=== PATIENT | female | born 1995 | race Caucasian/White ===

== ENCOUNTER 2019-10-23 14:28 | Outpatient (CLI) | payer OTHER, SELFPAY ==
--- NOTE | ~2019-10-23 | XR_ITS ---
XR hip LT min 2V DATE: 10/23/2019 14:52 INDICATION: Left lower groin pain for 2 weeks. Limping. No injury. TECHNIQUE: AP, lateral and crosstable lateral views of left hip COMPARISON: None FINDINGS: No fracture or dislocation, avascular necrosis or bone destruction. Left hip joint space is well preserved. There is an approximately 1 cm double density overlying the left hip joint; in order to differentiate intra-articular loose body versus more likely bone island or other cause for osteos clerotic lesion, CT evaluation left hip is recommended IMPRESSION: CT left hip examination is recommended to evaluate 1 cm density overlying left hip joint. Reviewed, dictated and finalized at location A. IMPRESSION: CT left hip examination is recommended to evaluate 1 cm density ove rlying left hip joint.
== END 2019-10-23 14:29 | disposition home or self-care (01) ==
LOC: ANHIMG 14:36
PROVIDERS: PCP Physician Assistant; Visit Provider Physician Assistant
DX: M47.24 Other spondylosis with radiculopathy, thoracic region (principal); R10.32 Left lower quadrant pain; R93.6 Abnormal findings on diagnostic imaging of limbs
CPT/HCPCS: 73502

== ENCOUNTER 2019-10-30 11:19 | Outpatient (CLI) | payer OTHER, SELFPAY ==
--- NOTE | ~2019-10-30 | CT_ITS ---
EXAMINATION: CT hip LT w con DATE: 10/30/2019 12:04 INDICATION: Abnormal finding at the left hip on prior radiographs. TECHNIQUE: High resolution computed tomography (CT) of the left hip was performed . with 100 mL Omnip aque-350 intravenous contrast. Additional sagittal and coronal reconstructions were performed. Automa kimberly exposure control and iterative reconstruction technique were employed. The dose-length product wa s 818.55 mGy-cm. COMPARISON: Radiographs dated 10/23/2019 FINDINGS: Bone alignment is normal. No fracture or suspected avascular necrosis. Left hip joint space is normal . A few scattered small sclerotic bone islands and larger than on that the posterior left acetabulum corresponding to the sclerotic lesion of concern on prior radiographs. 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 Tampon within the vaginal vault. The left ovary as well as the visualized portion of the bowels, bladder and uterus are unremarkable. No patho logically enlarged left pelvic or inguinal lymphadenopathy. IMPRESSION: 1. Unremarkable CT of the left hip with dense sclerotic left acetabular bone island corresponding to the opacity on the prior radiographs. Reviewed, dictated and finalized at location A. IMPRESSION: 1. Unremarkable CT of the left hip with dense sclerotic left acetabular bone is land corresponding to the opacity on the prior radiographs.
== END 2019-10-30 11:20 | disposition home or self-care (01) ==
LOC: ANHIMG 11:20
PROVIDERS: PCP Physician Assistant; Visit Provider Physician Assistant
DX: R93.6 Abnormal findings on diagnostic imaging of limbs (principal)
CPT/HCPCS: 73701; Q9967

== ENCOUNTER → 2020-10-31 10:18 | Outpatient (CLI) | payer OTHER, SELFPAY ==
--- NOTE | ~2020-10-31 | US_ITS ---
US right upper quadrant DATE: 10/31/2020 10:32 INDICATION: Pain TECHNIQUE: Real-time imaging, Doppler analysis of liver, pancreas, gallbladder areas COMPARISON: None FINDINGS: Normal caliber of the abdominal aorta. Inferior vena cava is unremarkable. No hepatic or pancreatic space-occupying mass lesion is evident. Normal hepatopedal portal venous tay w direction. No evidence of gallstones or gallbladder wall thickening or abnormal pericholecystic fluid collection . Negative sonographic Sousa's sign. The common bile duct measures 4.1 mm, normal. IMPRESSION: Normal examination Reviewed, dictated and finalized at Location A. Reviewed, dictated and finalized at location A. IMPRESSION: Normal examination
== END ==
PROVIDERS: Visit Provider Physician Assistant
DX: M54.6 Pain in thoracic spine (principal); R10.9 Unspecified abdominal pain
CPT/HCPCS: 76705

== ENCOUNTER 2021-10-26 15:44 | Outpatient (CLI) | payer BC, SELFPAY ==
--- NOTE | ~2021-10-26 | MR_ITS ---
EXAMINATION: MR brain/brain stem wo/w con DATE: 10/26/2021 16:32 INDICATION: Postural dizziness. Postural Orthostatic tachycardia syndrome. TECHNIQUE: Magnetic resonance imaging (MRI) of the brain and brainstem was performed without and with 14 mL MultiHance intravenous contrast. COMPARISON: None. FINDINGS: There is no intracranial hemorrhage, acute infarction, or abnormal intracranial mass lesion . The ventricles are normal in size. The orbits are normal. The paranasal sinuses are clear. The mast oid air cells are normal. IMPRESSION: 1. Normal brain. Reviewed, dictated and finalized at location A. IMPRESSION: 1. Normal brain.
[2021-10-26 16:14] LABS: Estimated Glomerular Filt Rate > 60
== END 2021-10-26 15:45 | disposition home or self-care (01) ==
PROVIDERS: PCP Physician Assistant; Visit Provider Physician Assistant
DX: R42 Dizziness and giddiness (principal)
CPT/HCPCS: 70553; A9577

== ENCOUNTER → 2022-11-01 12:00 | Outpatient (CLI) | payer BC, SELFPAY ==
--- NOTE | ~2022-11-01 | XR_ITS ---
AP and lateral views of the right hip Clinical history: Pain Findings: No acute fracture or dislocation is seen. Osseous alignment is anatomic. The right hip join t and right SI joint are preserved. Soft tissues are unremarkable. Impression: No significant abnormality is seen. Reviewed, dictated and finalized at [facility]. Impression: No significant abnormality is seen.
--- NOTE | ~2022-11-01 | XR_ITS ---
Lumbosacral Spine: AP and lateral views Clinical History: Pain Findings: The normal lordotic curve is maintained. The vertebral bodies and posterior elements are i ntact. The intervertebral disc spaces are preserved. There is moderate facet arthropathy at L4-L5 an d L5-S1. The sacroiliac joints are normally outlined. Impression: Facet arthropathy at the lower lumbar spine, as detailed above. Reviewed, dictated and finalized at location M. Impression: Facet arthropathy at the lower lumbar spine, as detailed above.
== END ==
PROVIDERS: PCP Physician Assistant; Visit Provider Physician Assistant
DX: M54.16 Radiculopathy, lumbar region (principal); M25.551 Pain in right hip; M47.816 Spondylosis without myelopathy or radiculopathy, lumbar region
CPT/HCPCS: 72100; 73502

== ENCOUNTER 2023-05-08 13:51 | Outpatient (CLI) | payer BC, SELFPAY ==
[2023-05-13 17:58] LABS: NIL 0.01 IU/mL; Quantiferon TB Plus, 1T NEGATIVE (NEGATIVE)
== END 2023-05-08 13:52 | disposition home or self-care (01) ==
PROVIDERS: PCP Physician Assistant
DX: M46.90 Unspecified inflammatory spondylopathy, site unspecified (principal); Z79.899 Other long term (current) drug therapy
CPT/HCPCS: 36415; 86480

== ENCOUNTER 2023-06-12 10:43 | Outpatient (CLI) | payer BC, SELFPAY ==
[2023-06-12 12:21] LABS: Hepatitis B Surface Anti Res Negative
[2023-06-12 17:33] LABS: Hepatitis B Surface Antigen Negative (Negative)
== END 2023-06-12 10:44 | disposition home or self-care (01) ==
LOC: ANHLAB 10:48
PROVIDERS: PCP Physician Assistant
DX: M46.90 Unspecified inflammatory spondylopathy, site unspecified (principal); Z79.899 Other long term (current) drug therapy
CPT/HCPCS: 36415; 86706; 87340

== ENCOUNTER 2024-02-10 15:24 | Outpatient (CLI) | payer BC, SELFPAY ==
--- NOTE | ~2024-02-10 | US_ITS ---
EXAMINATION: US right upper quadrant DATE: 02/10/2024 15:42 INDICATION: upper abd pain TECHNIQUE: Multiple grayscale and Doppler ultrasound images of the right upper quadrant were obtained . COMPARISON: 10/31/2020. FINDINGS: The visualized portions of the pancreas are normal. The liver is normal with normal echogen icity and echotexture. No surface nodularity. Normal hepatopetal flow in the main portal vein. The ga llbladder is normal with no abnormal wall thickening, pericholecystic fluid or stones. The common jamaal e duct measures 3 mm. There was no sonographic Sousa sign. IMPRESSION: Normal right upper quadrant ultrasound findings. Reviewed, dictated and finalized at location K.
== END 2024-02-10 15:25 ==
PROVIDERS: PCP Physician Assistant; Visit Provider Physician Assistant
DX: R10.10 Upper abdominal pain, unspecified (principal)
CPT/HCPCS: 76705

== ENCOUNTER 2024-02-14 07:37 | Outpatient (CLI) | payer BC, SELFPAY ==
--- NOTE | ~2024-02-14 | NM_ITS ---
EXAMINATION: NM hepatobiliary w pharm DATE: 02/14/2024 11:48 INDICATION: Right upper quadrant abdominal pain. COMPARISON: Abdomen ultrasound 02/20/2024 TECHNIQUE: 5 mCi Tc-99m mebrofenin (Choletec) was administered intravenously. Scintigraphic images o f the abdomen were obtained for one hour. Then, 1.4 mcg sincalide (Kinevac) IV was administered, and imaging was continued for 30 minutes. FINDINGS: There is normal clearance of radiotracer from the blood pool. There is homogeneous tracer u ptake by the liver. Activity progresses to the bowel and gallbladder. Gallbladder ejection fraction (GBEF) was 69%. Note that most patients with gallbladder dysfunction have GBEF < 35%, which overlaps with the broad normal range of 10-90%. IMPRESSION: 1. Normal hepatobiliary scintigraphy. Reviewed, dictated and finalized at location A.
== END 2024-02-14 07:38 | disposition home or self-care (01) ==
PROVIDERS: PCP Physician Assistant; Visit Provider Physician Assistant
DX: R10.11 Right upper quadrant pain (principal)
CPT/HCPCS: 78227; A9537; J2805

== ENCOUNTER 2024-02-20 15:29 | Emergency (ER) | payer BC, SELFPAY ==
--- NOTE | ~2024-02-20 | CT_ITS ---
EXAMINATION: CT abdomen pelvis w con DATE: 02/20/2024 18:33 INDICATION: Abdominal pain. TECHNIQUE: Computed tomography (CT) of the abdomen and pelvis was performed with 100 mL Omnipaque 350 intravenous contrast. Automated exposure control and iterative reconstruction technique were employe d. The dose-length product was 269.76 mGy-cm. COMPARISON: None. FINDINGS: The visualized portions of the lung bases are clear without pneumonia or pleural effusion. The heart is normal. No pericardial effusion. The liver and gallbladder are normal. There is moderate splenomegaly measuring 17.1 cm. The pancreas, adrenal glands, and kidneys are normal. There are no d ilated loops of bowel. The appendix is not visualized. There are no pathologically enlarged lymph nod es. There is no ascites. There are a few scattered benign bone islands. There is mild lumbar stenosis . IMPRESSION: 1. Moderate splenomegaly. Reviewed, dictated and finalized at location A. IMPRESSION: 1. Moderate splenomegaly.
[2024-02-20 15:38] VITALS: BP 113/68; PULSE 89; RESP 19; O2SAT 98
[2024-02-20 15:42] VITALS: BP 122/89; PULSE 77; RESP 16; TEMP 36.6; O2SAT 99
[2024-02-20 16:09] VITALS: PULSE 72; RESP 12; O2SAT 100
[2024-02-20 16:15] LABS: Basophils Percent Auto 0.2 % (0.2-1.2); Eosinophils Absolute Auto 0.3 K/mm3 (0-0.3); Hematocrit 38.6 % (37.0-47.0); Hemoglobin 13.1 g/dL (12.0-15.0); Lymphocytes Absolute Auto 2.52 K/mm3 (0.9-3.2); Lymphocytes Percent Auto 52.5 % (18.3-44.2); Mean Corpuscular HGB Conc 33.9 g/dl (32-36); Mean Corpuscular Hemoglobin 28.4 pg (26-34); Mean Corpuscular Volume 83.5 fl (80-100); Mean Platelet Volume 10.3 fl (7.4-10.4); Monocytes Absolute Auto 0.3 K/mm3 (0.1-0.6); Monocytes Percent Auto 5.6 % (2.6-8.5); Neutrophils Absolute Auto 1.7 K/mm3 (1.3-6.7); Neutrophils Percent Auto 35.7 % (45.5-73.1); Platelet Count Result 191 k/mm3 (150-375); Red Blood Count 4.62 M/mm3 (4.2-5.4); Red Cell Distribution Width 13.8 % (11.5-14.5); White Blood Count 4.8 K/mm3 (4.5-10.0)
[2024-02-20 16:18] LABS: Alanine Aminotransferase 29 U/L (6-35); Albumin Level 4.6 g/dL (3.5-5.1); Alkaline Phosphatase 62 U/L (38-126); Anion Gap 10 mmol/L (4-12); Aspartate Amino Transferase 39 U/L (14-36); Bilirubin,Total 0.9 mg/dL (0.2-1.3); Blood Urea Nitrogen 9 mg/dL (7-17); Calcium 9.4 mg/dL (8.4-10.2); Carbon Dioxide 27 mmol/L (22-30); Chloride 100 mmol/L (98-107); Estimated CRCL calculation 92 ml/min; Estimated Glomerular Filt Rate > 60; Glucose 90 mg/dL (65-110); Lipase 110 U/L (23-300); Potassium 4.3 mmol/L (3.4-5.0); Sodium 137 mmol/L (137-145)
[2024-02-20] MEDS: SODIUM CHLORIDE 0.9% IV 1,000 ML 999 ML IV CONT (16:30)
[2024-02-20] MEDS: PANTOPRAZOLE SODIUM IV 40 MG VIAL IV PUSH (16:32)
[2024-02-20] MEDS: HALOPERIDOL LACTATE 5 MG/ML VIAL IM (16:34)
[2024-02-20] MEDS: BELLADONNA ALK/PHENOB ELIX 10 ML, MAG HYDROX/ALUMINUM HYD/SIMETH 30 ML, LIDOCAINE HCL 2... PO (16:36)
[2024-02-20 16:39] LABS: INR 1.1; Partial Thromboplastin Time 29.8 Seconds (22.3-36.8); Prothrombin Time 14.2 Seconds (11.1-14.7)
--- NOTE | 2024-02-20 16:56 | ED.ABDPAIN ---
HPI - Abdominal Pain General Chief Complaint: Abdominal Pain Stated Complaint: abd pain Time Seen by Provider: 02/20/24 15:33 History of Present Illness HPI narrative: 28-year-old female present to the emergency department for evaluation for upper abdominal pain. Patient has had upper abdominal pain for the last few days. Patient has had persistent nausea vomiting diarrhea. Patient states pain is worsened immediately after eating. Patient did have a outpatient HIDA scan an outpatient ultrasound showing normal gallbladder function. Patient presented emergency department today complaining of persistent symptoms. Related Data Home Medications Medication Instructions Recorded Confirmed Bcp 06/04/19 Allergies Allergy/AdvReac Type Severity Reaction Status Date / Time No Known Allergies Allergy Verified 02/20/24 15:52 Review of Systems Review of Systems: All systems reviewed & are unremarkable except as noted in HPI and below PMFSH Family History Family History (Updated 10/08/14 @ 12:07 by DOCTOR UNKNOWN) Other Family history of malignant neoplasm of breast in first degree relative Family history of malignant neoplasm of uterus Social History Social History Smoking status: Never smoker Exam Narrative: APPEARANCE: Well appearing, no pain, no distress, well-nourished. HEAD: normocephalic, atraumatic. EYES: PERRLA/EOMI, conjunctivae clear. NOSE: Normal no drainage EARS:TMS clear with good light reflex. THROAT: Pharynx clear, no exudate. NECK: Supple. No adenopathy, no masses. RESPIRATORY: Airway patent, respirations nonlabored. Clear to auscultation bilaterally, no rales, rhonchi, wheezing. CARDIOVASCULAR: Regular rate and rhythm without murmurs rubs or gallops. ABDOMINAL: no significant upper abdominal tenderness to palpation, no rebound, no guarding MUSCULOSKELETAL: Moves all extremities. Strength/ROM intact, No edema, No calf tenderness. NEURO: Alert. Cranial nerves II through XII intact. Grossly intact SKIN: Warm, dry. Normal Color Course Course Emergency Course: Patient felt improved with treatment and was discharged to home Vital Signs Vital signs: Vital Signs Pulse Rate 89 02/20/24 15:38 Respiratory Rate 19 02/20/24 15:38 Blood Pressure 113/68 02/20/24 15:38 Pulse Oximetry 98 02/20/24 15:38 Temperature 97.9 F 02/20/24 15:42 Pulse Rate 85 02/20/24 19:05 Respiratory Rate 16 02/20/24 19:05 Blood Pressure 124/86 02/20/24 19:05 Pulse Oximetry 95 02/20/24 19:05 Oxygen Delivery Room Air 02/20/24 15:42 MDM - Abdominal Pain MDM Narrative Medical decision making narrative: 28-year-old female presenting to the emergency department for evaluation for upper abdominal pain. Patient is afebrile with no leukocytosis and a stable hemoglobin of 13.1. Patient has a normal INR of 1.1. Patient had no elevation of AST ALT alk-phos. Lipase was not elevated. Urine showed no evidence of infection. Patient was treated with GI cocktail, IV Protonix, IV fluids and IM Haldol. I had a lengthy discussion with the patient on refraining from CT imaging but patient strongly prefers so a CT scan was ordered. CT scan showed some mild splenomegaly but no underlying etiology for the patient's symptoms. On re-evaluation patient states she does feel significantly improved. Differential Diagnosis Differential diagnosis: Likely abdominal pain, acute appendicitis, constipation, diverticulitis, endometriosis, pancreatitis and small bowel obstruction Lab Data Attestation: I reviewed the patient's lab results. 02/20/24 16:00 02/20/24 16:00 Labs: Lab Results 02/20/24 02/20/24 Range/Units 16:00 16:49 WBC 4.8 (4.5-10.0) K/mm3 RBC 4.62 (4.2-5.4) M/mm3 Hgb 13.1 (12.0-15.0) g/dL Hct 38.6 (37.0-47.0) % MCV 83.5 (80-100) fl MCH 28.4 (26-34) pg MCHC 33.9 (32-36) g/dl RDW 13.8 (11.5-14.5) % Plt Count
[2024-02-20 16:57] LABS: Add Urine Microscopic? NO; Appearance Urine Clear (Clear); Bilirubin Urine Negative (Negative); Blood Urine Negative (Negative); Color Urine Yellow (Yellow); Glucose Urine UA Negative (Negative); Ketones Urine Negative (Negative); Leukocyte Esterase Ur Negative LEU/UL (Negative); Nitrate Urine Negative (Negative); Protein Urine Negative (Negative); Specific Grav Ur 1.006 (1.001-1.035); Urobilinogen Urine 0.2 mg/dL (<2.0)
[2024-02-20 17:37] LABS: Pregnancy On Board Control Positive; Urine Pregnancy Test Negative
[2024-02-20 18:17] VITALS: BP 132/61; PULSE 81; RESP 19; O2SAT 100
[2024-02-20 19:05] VITALS: BP 124/86; PULSE 85; RESP 16; O2SAT 95
== END 2024-02-20 19:23 | disposition home or self-care (01) ==
PROVIDERS: Emergency Provider Emergency Medicine; PCP Physician Assistant
DX: R10.10 Upper abdominal pain, unspecified (principal); R16.1 Splenomegaly, not elsewhere classified
CPT/HCPCS: 36415; 74177; 80053; 81003; 81025; 83690; 85025; 85610; 85730; 96361; 96372; 96374; 99284; A9270; J1630; J2470; J7030; Q9967

== ENCOUNTER 2025-02-19 11:15 | Outpatient (CLI) | payer BC, SELFPAY ==
--- NOTE | ~2025-02-19 | US_ITS ---
EXAMINATION: US thyroid DATE: 02/19/2025 11:35 INDICATION: Cervicalgia. Neck discomfort. TECHNIQUE: Multiple ultrasound images of the thyroid were obtained. COMPARISON: None. FINDINGS: The right thyroid lobe measures 4.8 x 1.3 x 1.7 cm. The left thyroid lobe measures 4.8 x 1.5 x 1.6 cm. There are few small similar-appearing hypoechoic nodules in both the left and right thyroid lobes with central hyperechoic foci, the largest with posterior comet tail artifact suggesting colloid cysts with inspissated colloid. The largest in both the left and right thyroid lobes measure up to 4 mm in maximal dimension. There is normal echotexture, echogenicity and vascular flow throughout the surrounding thyroid gland. IMPRESSION: 1. 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 Regardless of appearance the size remains below criteria for either biopsy or follow-up. Reviewed, dictated and finalized at location A. IMPRESSION: 1. A few hypoechoic nodules measuring up to 4 mm in the both the left and right thyroid lobes with appearance suggestive of benign colloid cyst with inspissat ed colloid. Regardless of appearance the size remains below criteria for either biopsy or follow-up.
== END 2025-02-19 11:16 | disposition home or self-care (01) ==
PROVIDERS: PCP Physician Assistant; Visit Provider Physician Assistant
DX: E04.2 Nontoxic multinodular goiter (principal); M54.2 Cervicalgia
CPT/HCPCS: 76536

== ENCOUNTER 2025-03-29 01:23 | Day surgery (SDC) | payer BC, SELFPAY ==
--- NOTE | 2025-03-17 17:58 | PC.NURSE ---
[facility] has started construction of its new state of the art ER which will open Spring 2026. With this, we anticipate parking may be a challenge for some our surgical patients and families. Parking spaces are limited but are available for all Surgical, obstetrics, and ER patients sharing this lot. If you arrive and find you are having a hard time finding a parking space, please note that we understand the challenges, please drive around the hospital and park near Hospital Entrance 1. When you enter this entrance, you can ask a volunteer to direct or take you back to the surgical waiting area to check in. We appreciate everyone?s understanding of these expected challenges while we build for your future. Report to the Outpatient Waiting Room, entrance under the green pavilion located off [address], at time _8:30am on date _[phone] . Planned Procedure Time: __10:30am .? Time changes happen often and if your time is changed the preop area will call you the afternoon before. - You and your visitor will be asked to self-screen and do not enter if you have any COVID symptoms. Please call surgeon if you need to reschedule. - A mask is optional within the hospital at this time. Patients may have clear liquids (water, carbonated beverages, clear teas, apple juice) until 3 hours prior to surgery with a maximum of 20 ounces. STOP AT 7:30AM - No food from midnight until time of surgery and no smoking, or chewing tobacco (or any form of nicotine). No chewing gum, candy or mints. Take only the following medications with a SIP of water on the morning of surgery: LEXAPRO, BUSPIRONE, STEROID INHALER FOR ASTHMA DO NOT STOP ANY OF YOUR OTHER PRESCRIPTION MEDICATIONS PRIOR TO SURGERY EXCEPT THE FOLLOWING: DO NOT TAKE ADDERRALL THE MORNING OF SURGERY. PLEASE BRING YOUR ALBUTEROL INHALER WITH YOU THE DAY OF SURGERY. Please no make-up, nail nepalese, hairspray, perfume, deodorant, or body powder the day of surgery.? No jewelry (including any body piercings) or valuables the day of surgery, leave them at home.? Please take a shower or bath the night before, or the morning of, surgery with an antibacterial soap.? Wear comfortable, loose fitting clothing.? - Jewelry must be removed prior to entering the operating room.? Rings and piercings that are not removed may be cut off. - The hospital will not accept responsibility for valuables.? - Please leave all valuables, including medications, at home the day of surgery. If you are going home after surgery, a licensed compactor driver must drive you home.? - NO public transportation without another adult if you receive anesthesia. - We recommend that an adult stay with you for 24 hours following discharge. - We also recommend that you do not drive, make important decision, drink alcoholic beverages, or take any drugs that were not prescribed by your health care provider for at least 24 hours after your discharge time. Follow any additional instructions given to you from your surgeon. Telephone instructions given to ____PATIENT (ERIKA) and asked if any additional questions and then verbalized understanding. Patient advised to call surgeon office or pre surgery nurse liaison [phone] if any additional questions.
[2025-03-17 18:08] VITALS: BMI 24.2
[2025-03-29] VITALS (9 sets, daily range): BP systolic 107–136; BP diastolic 66–85; PULSE 68–87; RESP 12–20; TEMP 36.5; O2SAT 94–100
--- OUTSIDE RECORDS SUMMARY | 2025-03-29 01:27 | XMS_ITS | Patient Health Record ---
Author Organization [facility] [place] [facility] Address [address] [place] [address] Care Team Providers Care Printing Equipment Mechanic Name Role Phone Praveen Lopez Unavailable [phone] Reason For Referral No Information Medications Medication SIG (Take, Route, Frequency, Duration) Notes Start Date End Date Status Vyvanse 20 MG Capsule Oral 07/05/2022 Active ProAir HFA 108 (90 Base) MCG/ACT Aerosol Solution Inhalation 07/05/2022 Active Escitalopram Oxalate 20 MG Tablet Oral 07/05/2022 Active buPROPion HCl ER (XL) 300 MG Tablet Extended Release 24 Hour Oral 07/05/2022 Active Spironolactone 50 MG Tablet Oral 07/05/2022 Active Naproxen 500 MG Tablet Oral 07/05/2022 Active buPROPion HCl ER (XL) 150 MG Tablet Extended Release 24 Hour Oral 07/05/2022 Active Tri-Estarylla 0.18/0.215/0.25 MG-35 MCG Tablet Oral 07/05/2022 Active DAPSONE 7.5 % TOPICAL GEL WITH PUMP *Reorder from [employer] for eRx and Interaction Alerts* 07/05/2022 Active Escitalopram Oxalate 5 MG Tablet Oral 07/05/2022 Active Clindamycin Phosphate 1 % Solution External 07/05/2022 Active Social History Social History Additional Details Category Social Info Options Details Migrated Social History Migrated Social History Alcohol Intake: None 06/29/2022,Tobacco Years: Former smoker 05/21/2022 Plan Of Treatment No Information Insurance Providers Payer Name Payer Address Payer Phone Subscriber Number Group Number Insured Name Patient Relationship to Insured Coverage Start Date Coverage End Date [employer] [employer] [address] [place] [phone] [id number] JOON ANGELES Spouse - patient is the spouse of the insured Medical (General) History Surgical History Surgery Date(Month/Year) Tonsilectomy/adenoids 06/24/2000 Any surgical history 08/17/2021 Sinus surgery 02/22/2018
--- OUTSIDE RECORDS SUMMARY | 2025-03-29 01:27 | XMS_ITS | Data Portability ---
Author Organization [facility] Address [address] [place] [address] Assessment Encounter Date Assessment Date Assessment LastModified by Organization Details LastModified Time 09/07/2024 09/07/2024 Annual gynecological exam performed. Patient will come back in a year unless there are new symptoms. [email or web address] Not available 09/07/2024 12:36:40 Plan of Treatment Reminders Order Date Submit Date Provider Last Modified By Organization Details Last Modified Time Details Appointments SURG Salpingec jennifer 2024 10:30A Jazlyn RICARDO MD Not available Not available Not available SURG POST OP 2024 08:30A Jazlyn RICARDO MD Not available Not available Not available Lab pap, IG + HR HPV - HPV regardles s but if HPV is positive need subtyping 16,18/45 2024 025 [facility] (Lab), [address], [place], [address], 09/10/2024 19:51:16 hereditar y breast + gynecolog ic cancer multigene analysis, blood or tissue 2024 025 [facility], [address], [place], [address], 10/06/2024 13:51:30 Referral None recorded. Procedures None recorded. Surgeries salpingec jennifer, laparosco pic (SURG) 2024 025 [email or web address] [facility], [address], [place], [address], 02/23/2025 10:44:17 Imaging US, pelvis 2024 025 [email or web address] [address], [address], [place], [address], 10/16/2024 09:11:07 US, transvagi nal 2024 025 [email or web address] [address], [address], [place], [address], 09/15/2024 14:03:21 US, pelvis, complete 2024 025 [email or web address] [address], [address], [place], [address], 10/16/2024 15:08:18 Medication Orders None recorded. Patient TargetsNo targets recorded. Patient InstructionsNo instructions recorded. Reason for Referral None Reported. Results Created Date Observation Date Name Description Value Unit Range Abnormal Flag Note LastModifiedBy Organization Detail LastModifiedTime 03/28/2003/28/2022 CT/GC AND TRICH OMONA S VAGIN LIBIA (RRNA ), SWAB chlamydia trachomatis, PCR Negati ve negati ve Not Available [facility] [address] [place] [address], [id number], 04/02/2022 11:26:20 03/28/20 22 03/28/2022 CT/GC AND TRICH OMONA S VAGIN LIBIA (RRNA ), SWAB neisseria gonorrhoeae, PCR Negati ve negati ve Not Available [facility] [address] [place], [address], 04/02/2022 11:26:20 03/28/20 22 03/28/2022 CT/GC AND TRICH OMONA S VAGIN LIBIA (RRNA ), SWAB trichomonas vaginalis ribosomal RNA (rrna) Negati ve negati ve Not Available [facility] [address] [place], [place] [address], [place], [address], 04/02/2022 11:26:20 03/28/20 22 03/28/2022 CULTU RE: HERPE S SIMPL EX VIRUS (HSV) , REFLE X TYPIN G culture: herpes simplex virus(hsv), reflex typing (cdh/dch/kh/ vwh/nwr) CANCEL LED Wrong Conta iner/ Swab Not Available [facility] [address] [place] [address], [phone], 04/02/2022 11:26:21 03/28/20 22 03/28/2022 HERPE S SUBTY PE(HS V1/HS V2) RT-PC R, ONESW AB herpes subtype (hsv-1, hsv-2) PCR Negati ve (HSV-1 ,HSV-2 ) Swab- 1 Vagin al HSV-1 :Nega tive HSV-2 :Nega tive. Not Available [facility] [address] [place] [address], [phone], 04/04/2022 03:01:54 09/08/19 25 09/07/2024 IMAGE GUIDE D PAP AND HPV REGAR DLESS image guided Pap, HPV regardless of Pap result SEE RESULT S BELOW abnormal CASE REPOR T: Cytol ogy Gynec ologi trev Repor t Case: [id number] Autho nallely ballesteros Provi fran: Dermo dy, Ulisses , ANP, SOCIAL SECRETARY Colle cted: 09/07 1316 Order ing Locat ion: [place] [facility] Recei rosa: 09/08 0207 First Scree n: Nina Pyle, CT Rescr een: Palma Dixon , CT Speci men: Scree barbra Pap - Image d, Cervi x STATE MENT OF ADEQU ACY: Satis facto ry for evalu ation Trans forma tion zone compo nent absen t The absen ce of an endoc ervic al compo nent was confi rmed by an addit ional scree ner. ----- ----- ----- ----- ----- ----- ----- ----- ----- ----- ----- ----- ----- ----- ----- ----- ----- ---- FINAL DIAGN OSIS: Negat lyn for Intra epith elial Debora anderson or Michel quach (NIL) . Elect vineet sheikh by Palma Dixon , CT on 2024 at 1848 CDT ----- ----- ----- ----- ----- ----- ----- ----- ----- ----- ----- ----- ----- ----- ----- ----- ----- ---- HPV RESUL TS: HPV mRNA E6/E7 : Posit lyn - HPV mRNA Detec kimberly HPV GENOT YPE 16 (SOTERO) : Not Detec kimberly HPV GENOT YPE 18/45 (SOTERO) : Not Detec kimberly NOTE: This high risk HPV mRNA assay detec ts fourt een high- risk HPV types (16, 18, 31, 33, 35, 39, 45, 51, 52, 56, 58, 59, 66, 68) witho ut diffe renti ation . This assay can diffe renti ate HPV 16 from HPV 18/45 , but does not diffe renti ate betwe en HPV 18 and HPV 45. A negat lyn HPV 16, 18/45 genot ype assay resul t does not exclu de the possi bilit y of cytol ogic abnor malit ies or of futur e or under lying TERESA 1, TERESA 3 or cance r. COMME NT: This speci men was revie wed by a Cytot echno logis t and/o r Patho logis t (as indic ated in this repor t) after evalu ation using the Thinp rep Imagi ng Syste m. CLINI TREV INFOR MATIO N: Menst rual Statu s: LMP (if appli cable ): Clini trev Histo ry/Pr eviou s Pap: Type of Neopl heather (if appli cable ): Signi fican t Clini trev Findi ngs: Other Histo ry: Hormo adria (if appli cable ): PAP EDUCA GURDEEP L NOTE: The Pap Test is a scree barbra test with an inher ent false negat lyn rate. Liqui d-bas ed sampl ing may decre ase, but will not elimi anabela, false negat lyn resul ts. A negat lyn resul t does not precl ude the prese nce and/o r devel opmen t of disea se, since the prese nce of abnor mal cells in the sampl e depen ds on the locat ion of the lesio n and sampl ing techn ique. Denzel nued regul ar scree barbra is the best metho d of cance r preve ntion . If repor kimberly cytol ogic findi ng do not corre late with physi trev and/o r histo rical findi ngs, furth er inves tigat ion is recom sky d, as clini leyda warra nted. Not Available [facility] (Lab) [address], [place], [address], 09/10/2024 19:51:16 09/22/19 25 09/21/2024 EMPOW ER COMPR EHENS LYN (2+79 ) report summary NEGATI VE normal Negat lyn for 81 out of 81 genes . No known patho genic or likel y patho genic varia nts were detec kimberly in the 81 genes roddy zed. Tyrer -Cuzi ck breas t cance r risk asses sment : 25.7% . Not Available [facility] [address], [place], [address], 10/06/2024 13:51:30 09/22/19 25 09/21/2024 EMPOW ER COMPR EHENS LYN (2+79 ) footnotes See Notes CLIA: ID #[id number] 2 Test perfo rmed by [employer]. [address] [place] [address] Gi Merino, Ph.D. , [facility] , Labor atory Direc tor Not Available [facility] [address], [place], [address], 10/06/2024 13:51:30 09/16/19 25 09/15/2024 US, pelvi s No observ ation record ed. [email or web address] [place] [address], [place], [address], 09/21/2024 10:47:36 09/16/19 25 09/15/2024 US, trans vagin al No observ ation record ed. [email or web address] [place] [address], [place], [address], 09/21/2024 10:47:37 09/16/19 25 09/15/2024 US, pelvi s No observ ation record ed. [email or web address] [address] [facility], [place], [address], 09/21/2024 10:47:37 Result Notes None recorded. Problems Name Problem SNOMED Code Status Onset Date Resolution Date Notes Provider Name and Address Organization Details Recorded Time Dysmenor yenny [id number] Completed 201010/27/2020 Dysmenorr hea;Pract ice ID: 0001 Missy Jeff [facility] 15:52:15 Screenin g for malignan t neoplasm of cervix Completed 201010/27/2020 Pap Smear;Pra ctice ID: 0001 Missy Aguilar [facility] 15:52:35 Speciali zed medical examinat ion Completed 201110/27/2020 Routine gynecolog ical examinati on;Practi ce ID: 0001 Missy Jeff [facility] 15:52:45 Dyspareu dax [id number] Completed 201210/27/2020 Dyspareun ia;Practi ce ID: 0001 Missy Aguilar [facility] 15:52:17 Adult health examinat ion Completed 201310/27/2020 Routine general medical examinati on at a health care facility; Practice ID: 0001 Missy Aguilar [facility] 15:52:09 Abdomina l pain [id number] Completed 201310/27/2020 Abdominal pain, unspecifi ed site;Prac salvatore ID: 0001 Missy Aguilar [facility] 15:52:06 Right lower quadrant pain [id number] Completed 201310/27/2020 Abdominal pain, right lower quadrant; Practice ID: 0001 Missy Aguilar [facility] 15:52:31 Pregnanc y test negative [id number] Completed 201310/27/2020 Negative Test;Prac salvatore ID: 0001 Missy Aguilar [facility] 15:52:28 Surveill ance of contrace ption Completed 201510/27/2020 Encounter for surveilla nce of contracep tives, unspecifi ed;Practi ce ID: 0001 Missy Aguilar [facility] 15:52:47 Insertio n of intraute rine contrace ptive device Completed 201510/27/2020 Encounter for insertion of intrauter ine contracep tive device;Re corded Elsewhere : No Locati on: [facility] So urce: EHR Chron ic: N Practic e ID: 0001 Bill able Time: 10:45:00 AM Missy Aguilar [facility] 15:52:[address] Concept Completed 201510/27/2020 Encounter for surveilla nce of other contracep tives;Pra ctice ID: 0001 Missy mcmanus [facility] 15:52:[address] Concept Completed 201610/27/2020 Encntr for planning director exam (general) (routine) w/o abn findings; Practice ID: 0001 Missy Aguilar [facility] 15:52:[address] Concept Completed 201610/27/2020 Encntr for general adult medical exam w/o abnormal findings; Recorded Elsewhere : No Locati on: [facility] So urce: EHR Chron ic: N Practic e ID: 0001 Bill able Time: 10:30:00 AM Missy mcmanus [facility] 15:52:39 Secondar y amenorrh ea [id number] Completed 201710/27/2020 Secondary amenorrhe a;Practic e ID: 0001 Missy Aguilar [facility] 15:52:37 Pregnanc y detectio n examinat ion Completed 201710/27/2020 Encounter for test, result positive; Practice ID: 0001 Missy mcmanus [facility] 15:52:26 Body mass index 25-29 - overweig ht [id number] Completed 201710/27/2020 Body mass index (BMI) 29.0-29.9 , adult;Rec orded Elsewhere : No Locati on: [facility] So urce: EHR Chron ic: N Practic e ID: 0001 Bill able Time: 09:30:00 AM Missy mcmanus [facility] 15:52:11 Hemorrha gic complica tion of pregnanc y [id number] Completed 201710/27/2020 Other hemorrhag e in early ;Practice ID: 0001 Missy mcmanus [facility] 15:52:22 Gestatio n less than 9 weeks [id number] Completed 201710/27/2020 Less than 8 weeks gestation of ;Practice ID: 0001 [facility] 15:52:20 Problem Notes None recorded. Procedures Surgical History Date Name Laterality Status Provider Name and Address Organization Details Recorded Time 05/14/20 24 completed [facility] 09/07/2024 12:36:54 05/14/20 24 Date of Last Colonoscopy completed [facility] 09/07/2024 12:36:54 10/29/19 21 Date of Last Pap Smear completed [facility] 10/28/2020 11:54:26 03/24/20 20 operation on hip joint completed [facility] 08/01/2020 23:44:14 06/24/19 14 turbinectomy completed [facility] 08/01/2020 23:43:58 06/24/19 02 Tonsillectomy completed [facility] 08/01/2020 23:43:24 06/24/19 02 myringotomy and insertion of tympanic ventilation tube completed [facility] 08/01/2020 23:43:41 Imaging Results None recorded. Procedure Notes None recorded. Medical Equipment None Reported. Allergies No known drug allergies Medications Name Sig Start Date Stop Date Status Note LastModified by Organization Details LastModified Time d3 super strength 50 mcg (1999) caps 09/07 completed Not Available Not Available Not Available gnp vitamin c 500 mg chew 03/28 completed Not Available Not Available Not Available buspirone 5 mg tablet TAKE 1 TABLET BY MOUTH TWICE A DAY active Not Available Not Available No t Available clindamyc in HCl 300 mg capsule Take 1 capsule twice a day by oral route for 7 days. 08/12 completed Not Available Not Available Not Available loperamid e 2 mg capsule TAKE 1 CAPSULE BY MOUTH TWICE A DAY 09/07 completed Not Available Not Available Not Available fluconazo le 150 mg tablet TAKE 1 TABLET BY MOUTH NOW THEN REPEAT IN 3 DAYS 09/07 completed Not Available Not Available Not Available hydrocodo ne 5 mg-acetam inophen 325 mg tablet 11/10 completed Not Available Not Available Not Available tretinoin 0.025 % topical cream 03/28 completed Not Available Not Available Not Available ondansetr on HCl 4 mg tablet TAKE 1 TABLET BY MOUTH 3 TIMES A DAY. 09/07 completed Not Available Not Available Not Available dextroamp hetamine- amphetami ne 10 mg tablet TAKE 1 TABLET BY MOUTH EVERY DAY IN THE AFTERNOO N 09/07 completed Not Available Not Available Not Available spironola ctone 100 mg tablet TAKE 1 TABLET BY MOUTH EVERY DAY 09/07 completed Not Available Not Available Not Available tramadol 50 mg tablet take 1 - 2 Tablet by oral route every 6 hours as needed 12/26 completed Prescrib ed Elsewher e: No Locat ion: [facility] odify By: amkaleena Sam ncosanya DateTime : 05/31/20 14 04:45:00 PM Not Available Not Available Not Available spironola ctone 25 mg tablet TAKE 1 TABLET BY MOUTH EVERY DAY 12/05 completed Not Available Not Available Not Available dextroamp hetamine- amphetami ne 30 mg tablet TAKE 1 TABLET BY MOUTH EVERY DAY IN THE MORNING 09/07 completed Not Available Not Available Not Available dextroamp hetamine- amphetami ne ER 20 mg 24hr capsule,e xtend release TAKE 2 CAPSULES BY MOUTH EVERY MORNING 09/07 completed Not Available Not Available Not Available betametha sone valerate 0.1 % topical cream apply by topical route every day a thin layer to the affected area(s) 05/19 completed Prescrib ed Elsewher e: No Locat ion: [facility]ify By: dieter cohen DateTime : 09/04/19 13 04:30:00 PM Not Available Not Available Not Available pantopraz ole 40 mg tablet,de layed release TAKE 1 TABLET BY MOUTH EVERY DAY 09/07 completed Not Available Not Available Not Available omeprazol e 20 mg capsule,d elayed release 20 MG ORALLY DAILY FOR 14 DAYS 09/07 completed Not Available Not Available Not Available aspirin 81 mg chewable tablet 03/28 completed Not Available Not Available Not Available norgestim ate-ethin yl estradiol 0.18mg/0. 215mg/0.2 5mg-0.035 mg(28)tab let TAKE 1 TABLET BY MOUTH EVERY DAY 09/07 completed Not Available Not Available Not Available hydroxyzi ne HCl 25 mg tablet TAKE 1/2 TO 1 TABLET BY MOUTH ONCE A DAY NEEDED FOR ANXIETY active Not Available Not Available No t Available albuterol sulfate HFA 90 mcg/actua tion aerosol inhaler INHALE 2 PUFFS EVERY 4 HOURS BY INHALATI ON ROUTE NEEDED active Not Available Not Available No t Available ondansetr on 4 mg disintegr ating tablet 4 MG ORALLY EVERY 8 HOURS NEEDED FOR NAUSEA AND VOMITING 09/07 completed Not Available Not Available Not Available Diflucan 200 mg tablet Take 1 tablet on days 1, 4 & 7 of a seven day time span. 08/12 completed Not Available Not Available Not Available naproxen 500 mg tablet TAKE 1 TABLET BY MOUTH TWICE A DAY WITH MEALS 09/18 completed Not Available Not Available Not Available spironola ctone 50 mg tablet TAKE 1 TABLET BY MOUTH EVERY DAY 03/28 completed Not Available Not Available Not Available amoxicill in 875 mg-potass ium clavulana te 125 mg tablet TAKE 1 TABLET BY MOUTH EVERY 12 HOURS 09/07 completed Not Available Not Available Not Available clindamyc in phosphate 1 % topical solution 09/07 completed Not Available Not Available Not Available clindamyc in 1 % lotion APPLY A THIN LAYER TO THE AFFECTED AREA(S) BY TOPICAL ROUTE 2X/WK FOR MAINTENA NCE. 10/27 completed Not Available Not Available Not Available dextroamp hetamine- amphetami ne ER 25 mg 24hr capsule,e xtend release TAKE 1 CAPSULE BY MOUTH TWICE DAILY active Not Available Not Available No t Available escitalop bailee 10 mg tablet TAKE 1 & 1/2 TABLETS BY MOUTH ONCE A DAY active Not Available Not Available No t Available escitalop bailee 20 mg tablet TAKE 1 TABLET BY MOUTH EVERY DAY 09/07 completed Not Available Not Available Not Available Mononessa (28) 0.25 mg-35 mcg tablet TAKE 1 TABLET BY MOUTH EVERY DAY 12/26 completed Prescrib ed Elsewher e: No [facility] By: anika Sam ncounter DateTime : 04/11/20 15 08:42:33 AM Not Available Not Available Not Available Flexeril 5 mg tablet take 1 tablet (5MG) by oral route 3 times every day 09/07 completed Prescrib ed Elsewher e: No Locat ion: [facility] odify By: kp Sam ncounter DateTime : 06/02/20 13 10:45:00 AM Not Available Not Available Not Available Premarin 0.625 mg/gram vaginal cream PLACE 1 GRAM BY VAGINAL ROUTE EVERY BEDTIME PRN 12/26 completed Prescrib ed Elsewher e: No [facility] By: anika Sam ncounter DateTime : 11/25/19 14 09:04:35 AM Not Available Not Available Not Available bupropion HCl XL 300 mg 24 hr tablet, extended release TAKE 1 TABLET BY MOUTH EVERY DAY active Not Available Not Available No t Available bupropion HCl XL 150 mg 24 hr tablet, extended release TAKE 1 TABLET EVERY DAY BY MOUTH IN THE MORNING. 11/10 completed Not Available Not Available Not Available escitalop bailee 5 mg tablet TAKE 1 TABLET BY MOUTH EVERY DAY FOR 14 DAYS 09/07 completed Not Available Not Available Not Available Jolynn-D 24 Hour 180 mg-240 mg tablet,ex tended release take 1 tablet by oral route every day on an empty stomach with a glass of water 12/03 completed Prescrib ed Elsewher e: No Locat ion: [facility]ify By: shelli Sam ncounter DateTime : 12/01/19 12 01:34:20 PM Not Available Not Available Not Available Tri-Sprin ignacio (28) 11/10 completed Not Available Not Available Not Available Vyvanse 30 mg capsule TAKE 1 CAPSULE BY MOUTH EVERY DAY IN THE MORNING 09/07 completed Not Available Not Available Not Available budesonid e-formote rol HFA 160 mcg-4.5 mcg/actua tion aerosol inhaler INHALE 2 PUFFS BY MOUTH TWICE A DAY active Not Available Not Available No t Available Symbicort active Not Available Not Sachi ilable Not Available Vyvanse 20 mg capsule TAKE 1 CAPSULE BY MOUTH EVERY DAY IN THE MORNING 09/07 completed Not Available Not Available Not Available fluvoxami ne ER 100 mg capsule,e xtended release 24 hr TAKE 1 CAPSULE BY MOUTH EVERY DAY active Not Available Not Available No t Available GaviLyte- G 236 gram-22.7 4 gram-6.74 gram-5.86 gram oral solution TAKE 4,000 ML BY MOUTH ONCE FOR 1 DOSE. 09/07 completed Not Available Not Available Not Available dapsone 7.5 % topical gel with pump APPLY A PEA-SIZE D AMOUNT ONCE DAILY TO COVER AREAS OF FACE WITH THIN LAYER RUB IN GENTLY/C OMPLETEL Y 09/18 completed Not Available Not Available Not Available Humira(CF ) 40 mg/0.4 mL subcutane ous syringe kit active Not Available Not Available Not Available Vitals Date Recorded Body height Body mass index (BMI) Body weight Systolic And Diastolic Provider Name and Address Organization Details Last Updated DateTime 09/07/2024 166.37 cm 25.9 kg/m2 81342.59 g 130/80 mm[Hg] Arlette Chandra [facility] 09/07/2024 12:52:47 Date Recorded Body height Body mass index (BMI) Body weight Systolic And Diastolic Provider Name and Address Organization Details Last Updated DateTime 09/18/2024 166.37 cm 25.2 kg/m2 14258.22 g 107/74 mm[Hg] HORTENCIA [facility] 09/18/2024 10:55:56 Date Recorded Body height Body mass index (BMI) Body weight Systolic And Diastolic Provider Name and Address Organization Details Last Updated DateTime 09/21/2024 166.37 cm 25.7 kg/m2 20563 g 116/80 mm[Hg] HORTENCIA Ureña [facility] 09/21/2024 11:09:21 Date Recorded Systolic And Diastolic Provider Name and Address Organization Details Last Updated DateTime 03/28/2022 122/70 mm[Hg] Nancy Lim, [facility]- [address], [place], [address], [facility] 03/28/2022 12:34:47 Date Recorded Body height Body mass index (BMI) Body weight Provider Name and Address Organization Details Last Updated DateTime 03/28/2022 166.37 cm 28.1 kg/m2 82525.01 g Missy Aguilar [facility] 03/28/2022 12:19:31 Social History Question Answer Notes LastModified by Organizat ion Details LastModified Time Tobacco Smoking Status Former Smoker Olimpia mcmanus, [facility] 08/01/2020 23:42:53 Do You Have An Advance Directive? No [email or web address] Information n ot available 09/07/2024 If You Are , What Was Your Level Of Alcohol Consumption Prior To ? None [email or web address] Information not available 08/01/2020 How Many Years Have You Consumed Alcohol? 5 [email or web address] Information not available 08/01/2020 Are You Blind Or Do You Have Difficulty Seeing? No Information n ot available 11/10/2021 What Is Your Level Of Caffeine Consumption? Moderate Information not available 08/01/2020 How Much Tobacco Do You Chew? None [email or web address] Information not available 09/07/2024 In The 14 Days Before Symptom Onset, Have You Had Close Contact With A Laboratory-confirm ed COVID-19 While That Case Was Ill? No Information n ot available 09/07/2024 In The 14 Days Before Symptom Onset, Have You Had Close Contact With A Person Who Is Under Investigation For COVID-19 While That Person Was Ill? No [email or web address] Information not available 09/07/2024 Have You Been To An Area Known To Be High Risk For COVID-19? No [email or web address] Information not available 09/07/2024 Are You Deaf Or Do You Have Serious Difficulty Hearing? No Information not available 11/10/2021 What Type Of Diet Are You Following? REGULAR Information n ot available 10/27/2020 Which Illicit Or Recreational Drugs Have You Used? Analisamy [email or web address] Information not available 08/01/2020 What Is The Highest Grade Or Level Of School You Have Completed Or The Highest Degree You Have Received? [id number] [email or web address] Information not available 09/07/2024 How Many Days Of Moderate To Strenuous Exercise, Like A Brisk Walk, Did You Do In The Last 7 Days? 5 [email or web address] Information not available 08/01/2020 On Those Days That You Engage In Moderate To Strenuous Exercise, How Many Minutes, On Average, Do You Exercise? 30 [email or web address] Information not available 08/01/2020 Are There Any Guns Present In Your Home? No Information not available 09/07/2024 How Many Years Have You Used Illicit Or Recreational Drugs? 5 [email or web address] Information not available 08/01/2020 Have You Ever Been Counseled For Unhealthy Alcohol Use? No [email or web address] Information not available 08/01/2020 Do You Use Protection During Sex? No [email or web address] Information not available 09/07/2024 Do You Use Your Seat Belt Or Car Seat Routinely? Yes [email or web address] Information not available 09/07/2024 Do You Have Smoke And Carbon Monoxide Detectors In Your Home? Yes Information not available 09/07/2024 At What Age Did You Start Smoking Tobacco? 21 [email or web address] Information not available 08/01/2020 How Much Tobacco Do You Smoke? No [email or web address] Information not available 09/07/2024 Do You Use Sunscreen Routinely? No [email or web address] Information not available 09/07/2024 Has Tobacco Cessation Counseling Been Provided? No [email or web address] Information not available 08/01/2020 Have You Used IV Drugs? No [email or web address] Information not available 08/01/2020 Do You Have Difficulty Walking Or Climbing Stairs? No Information not available 11/10/2021 How Many Years Have You Used E-cigarettes Or Vape? 1 [email or web address] Information not available 08/01/2020 Sex: Unknown Functional Status Question Answer Note LastModified by Organizat ion Details LastModified Time Do you use any illicit or recreational drugs? Yes [email or web address] Information not available 08/01/2020 Do you or have you ever used any other forms of tobacco or nicotine? Yes [email or web address] Information not available 08/01/2020 What is your level of alcohol consumption? None Information not available 09/07/2024 Do you or have you ever used smokeless tobacco? Never used smokeless tobacco [email or web address] Information not available 08/01/2020 Are you able to walk independently without assistance or assistive devices? [email or web address] Information not available 11/10/2021 Are you able to care for yourself independently? 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 No Information not available 11/10/2021 Do you or have you ever used e-cigarettes or vape? Current user of electronic cigarettes [email or web address] Information not available 08/01/2020 What is your exercise level? Moderate [email or web address] Information not available 08/01/2020 Mental Status Question Answer Note LastModified by Organization D etails LastModified Time Do you feel stressed (tense, restless, nervous, or anxious, or unable to sleep at night)? [id number] [email or web address] Information not available 09/07/2024 Family History Relationship Description Onset Age of this Age Resolved Age Notes LastModified by Organization Details LastModified Time Mother Hypertensive disorder [email or web address] Not available 08/01 23:40:32 Mother Diabetes mellitus [email or web address] Not available 08/01 23:40:49 Mother Malignant neoplasm of uterus 30 [email or web address] Not available 2024 12:36:54 Maternal Grandmother Diabetes mellitus [email or web address] Not available 08/01 23:40:49 Brother Malignant neoplasm of prostate 30 [email or web address] Not available 08/23 10:46:38 Medical History Condition Response Allergies (Food, seasonal, environmental ) N Other N Breast Cancer N Drug/Latex Allergies/Reactions N Blood Transfusion N Lung Disease N Dermatologic Disorders N Defects or Inherited Disease N Breast Problem N Gestational Diabetes N Hematologic disorders N Anesthesia Complications N History of STI N Deep Vein Thrombosis N Polycystic ovary syndrome N Anxiety Disorder N Autoimmune disease Y Arthritis Y Polyps N Infertility N History of abnormal pap N Acid Reflux (GERD) N Cancer N Varicosities N Stroke N Neurologic/Epilepsy N Endometriosis N High Cholesterol N Fibromyalgia N Headaches N Kidney Disease N Heart Problems N Kidney or Bladder Problems N Thyroid Problems N GI Problems N Eating Disorder N Anemia N Art (IVF or FET) N Psychiatric Illness N Ovarian Cancer N Diabetes N Pulmonary (TB, Asthma) N Hepatitis/Liver Disease N Eczema N Urinary Tract Infection N Abuse/Domestic Violence N Asthma Y Trauma/Violence N Depression/ depression N Heart Disease N Pre-Eclampsia N Hypertension N Osteoporosis N Thrombophilias N Gynecological History Statement/Question Response Flow Moderate Date of LMP 09/21/2024 N Was last menstrual period normal N STIs/STDs N Date of Last Colonoscopy 05/14/2024 Unknown Desired Control Method Sterilizati on Abnormal Pap N On BCP's at Conception? N HPV Vaccine Y Duration of Flow (days) 5 9 Current Control Method Withdrawal Are cycles usually normal Y Frequency of Cycle (Q days) 25 Sexually Active? Y Menses Monthly Y Age of first menstrual cycle 8 Date of Last Pap Smear 10/28/2020 Sexual Problems? N LMP Definite 05/14/2024 N Obstetrics History GPAL:G 1 P 0 0 1 0 Type Value Induced 1 Living 0 Total 1 Past Encounters Encounter ID Performer Location Encounter Start Date Encounter Closed Date Diagnosis/Indication Diagnosis SNOMED-CT Code Diagnosis ICD10 Code Diagnosis IMO Codes Diagnosis Note [id number] BINU [facility] [address] [address] 07/23/2020 09:41:09 07/23/2020 10:53:24 Hidradenitis suppurativa of vulva 936684446 L73.2 Today, we agreed on a round of abx with diflucan to prevent yeast from taking abx. She will return for medication check & we can discuss ways to prevent or decrease HS flare ups Can refer to derm moving forward if needed. Counseled on HS, resources given, over view of purpose of treatments and lifestyle changes that can be made. Time spent in visit is a total of 32 mins with at least 50% of visit consisting of counseling and review of plan of care. [id number] Nancy Lim [facility] [address],[place] [address] 08/12/2020 12:10:56 08/12/2020 12:51:25 Hidradenitis suppurativa of vulva [id number] L73.2 Much improvemen t with this condition. We agreed to the following plan of care: Clindamyci n lotion or gel topically, 5 nights in a row, then 2x/wk for prevention . RTO x 3mos for med check & WWE. Counseled on HS, resources given, over view of purpose of treatments and lifestyle changes that can be made. Time spent in visit is a total of 16 mins with at least 50% of visit consisting of counseling and review of plan of care. [id number] Nancy Lim [facility] [address],[place] [address] 10/28/2020 11:31:54 10/28/2020 12:23:03 Gynecologic examination [id number] Z01.419 Take Calcium with Vitamin D 1200mg daily if not receiving in daily diet. It is strongly advised to have an annual flu shot and up can obtain at most pharmacies . If you have not had a TDap shot in the last 10 years you should obtain one as well. Discussed with patient & provided with informatio n regarding Gardisil vaccine to prevent the 4 strains for HPV that cause cervical cancer if under age 26. Encourage safe sexual practices, to use condoms and limit partners if not already in a monogamous relationsh ip. Do monthly self breast exams. Have mammogram yearly or every other year depending on family history. BRCA testing is now available for patients with strong genetic history of female cancer. If interested contact the office. Engage in daily exercise of low impact aerobic exercise 45-60 minutes 4-5 times weekly. Avoid tobacco and illicit drugs as well as using moderation with alcohol intake less than 1-2 8 oz beverages daily. This lifestyle behavior pattern will lead to less health conditions and longer life span. If BMI greater than 25 weight watchers or dietary consult advised. Patient received above instructio ns, and questions have been answered. If you have any questions please call or respond to this email. Patient was made aware of the patient portal and may obtain a paper copy of today's plan if desired. Pap sent Normal pap hx monogamous NO issues or concerns Brandin ballesteros pelvic wand to help keep up her PFD that she has seen PT for. Doing well on OCP RF sent [id number] Nancy Lim [facility] [address],[place] [address] 11/10/2021 11:23:55 11/10/2021 12:46:34 Cystic acne [id number] L70.0 Today we discussed the followin. Changing BCP to Gretchen or Chuyita 2. Addition of Spironolac tone to current BCP 3. Addition of Aczone plus spironolac tone. Opts for #3 with her current BCP. If no improvemen t of minimal improvemen t consider change in BCP next visit.Need s CMP for base line potassium levelsStay hydratedRT O x 4wks Time spent in visit is a total of 26 mins with at least 50% of visit consisting of counseling and review of plan of care. Depressive disorder [id number] [id number] F32.A Requests referral to psychiatri st for depression or evaluation of other related issues (i.e. bipolar etc that run in the family). Neg suicidal thoughts/p gay/though ts of self harmNo extreme mood swings very high/very low.Will refer to [facility] associates [id number] Nancy Lim [facility] [address],[place] [address] 03/28/2022 12:08:10 03/28/2022 14:28:17 Furuncle of vulva [id number] N76.4 Resolving boil vulva left labia majora present on examOTC abx ointment until resolvesCa ll if any changes. Time spent in visit is a total of 15 mins with at least 50% of visit consisting of counseling and review of plan of care. Venereal d isease screening [id number] Z11.3 Update STD screen per request [id number] Devon Judd MD [place] [address],[facility] [place] [address] 09/07/2024 12:35:18 09/07/2024 15:34:16 Gynecologic examination [id number] Z01.419 Annual gynecologi trev exam performed. Patient will come back in a year unless there are new symptoms. Suggest Calcium with Vitamin D if not eating in diet. Patient advised to get annual flu shot. Recommend yearly physicals and perform monthly breast exams. Genetic testing is available for patients with family history of cancer. Engage in safe sexual practices, use condoms. Encouraged to have daily exercise. Avoid tobacco and illicit drugs, moderation of alcohol. If BMI greater than 25 dietary consult advised. If you have any questions please call or email. mammogram- may consider early screening at age 35 d/t FH of uterine cancer; recommende d genetic screening. Genetic screening discussed; mother with uterine cancer at age 30 colon cancer screening - n/a DEXA scan- n/a Pap smear- pap w/ HPV collected laboratory evaluation - PCP STI testing - declined Pain in pelvis 50859134 R10.2 Pelvic ultrasound ordered to evaluate for causes of pelvic pain and heavy cycles. Discussed hormonal IUD for cycle regulation and for contracept ion. Discussed the risks, benefits, and alternativ es to Mirena IUD. Discussed insertion and removal process. Discussed bleeding profile. Questions answered. Patient to consider. Patient interested in permanent sterilizat ion and requests consult for felecia george. Patient states that she knows that her and her do not want children.W ill schedule ultrasound f/u and tubal consult with . Family his tory of malignant neoplasm of uterus [id number] Z80.49 Empower hereditary cancer screening ordered. Vasovagal syncope 021646 005 R55 Patient had syncopal episode in office after pelvic exam performed. Syncopal episode lasted approximat ray 10 seconds, pt was lying down on exam table.Inte rventions included raising patient's lower extremitie s, offering water, cooling with fanAfter episode, patient then alert and oriented x 4 and stable per physical assessment .Observed in office for 30 minutes post episode.Pablo riojas verbalized feeling back to baseline, declined further evaluation or medical interventi on.Precaut ions thoroughly discussed. Instructed patient to go to ER if she experience s chest pain, SOB, dizziness, syncope, or palpitatio ns. Patient verbalized understand ing. [id number] Devon Judd MD [place] [address] [address] 09/15/2024 09:48:11 09/15/2024 10:50:02 Abnormal uterine bleeding [id number] 9100 N93.9 R10.2 [id number] LUIS DANIEL RICARDO MD [place] [address] [address] 09/18/2024 10:46:33 09/18/2024 22:58:20 [id number] LUIS DANIEL RICARDO MD [place] [address] [address] 09/21/2024 11:03:26 09/21/2024 14:25:21 Sterilization requested [id number] Z30.2 - patient desires permanent sterilizat ion- discussed risks, benefits, and alternativ es of bilateral salpingect ariel, including risks of bleeding, infection and injury to surroundin g organs. 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 [id number] R87.619 - HPV E6/E7+, NILM cytology- discussed positive HPV pap, recommenda tion for 1 year follow up.- discussed if persistent HPV+, would recommend colposcopy Health Concerns Section Related Observation LastModified by Organization Detai ls LastModified Time None Recorded Concern Status LastModified by Organization Details LastModified Time None Recorded Advance Directives Directive N: Payers Insurance Date Sequence Insurance Name Policy Number Policy Rodriguez Covered Member ID Rodriguez Member ID Guarantor Name 03/28/2025 1 TIANA [id number] Malika Kimball [id number] Malika Kimball 03/26/2025 1 [place] [id number] Juventino Kimball [id number] Maliak Kimball Notes Date Note Type Note Provider Name and Address Organization Details Recorded Time 2 text/html ROS as noted in the HPI Here today for vaginal bump & updated std screening. Nancy Lim, [facility]- [address], [place], [address], [facility] 03/28/2022 14:05:05 5 text/html Annual GYNReported by PatientGenitourinary symptomsFor menstrual cycle, patient reportsirregular cycle intervals. For urinary symptoms, patient reportsno hematuriaandno incontinence. For vulva, patient reportsno genital lesion. For vagina, patient reportsnormal vaginal discharge.Breast symptomsFor breast, patient reportsno breast pain,no breast lump, andno nipple discharge.ContraceptionFo r current contraception, patient reportscondoms.Endocrine symptomsFor sexual complaints, patient reportsno sexual complaints,no pain during intercourse, andnormal libido. For menopausal symptoms, patient reportsno menopausal symptomsandnormal vaginal lubrication.Psychological symptomsFor psychological symptoms, patient reportsanxietybut reportsno depression.Preventative measuresFor preventive measures, patient reportsencourage self breast examination,encourage regular exercise,encourage no tobacco use, andencourage regular mammograms starting age 40. Patient presents for annual well woman exam.Patient would like to discuss permanent sterilization as she and her do not want to have children. Patient has tried control pills, depo, and Nexplanon in the past and did not like the side effects.Patient states that she is concerned about random lower pelvic pain that will occur when she is off and on her period. Patient describes the pain as sharp and quick, and she has noticed this pain for over a year. Patient denies constipation, diarrhea, fever, or sx.Patient states that cycles have been irregular recently, and she had two periods last month, 14 days apart. Patient states that her periods are often heavy with large blood clots.Patient states that her mother was diagnosed with uterine cancer at age 30, and she often has health anxiety. ULISSES SANDERS NP [address], [place], [address], [facility] 09/09/2024 10:58:22 5 text/html Patient presents for ultrasound follow up. She reports random pelvic pains throughout her abdomen both on and off her periods. She also has a history of constipation. Patient also presents for discussion of permanent sterilization. She does not desire childbearing and would like a permanent form of control. No PSH. She and her partner have discussed their options and would like to move forward with tubal ligation. Would also like to discuss HPV positive pap smear. No hx of abnormal pap smears. NILM cytology with +HPV E6/E7. LUIS DANIEL RICARDO MD [address], [place], [address], [facility] 09/21/2024 14:17:09 OBGyn Episode Ob Episode Information Episode Created Date Number of Fetuses Patient Bloodtype Patient rh Status Prepregnancy Weight lbs Domestic Partner Domestic Partner Phone Father Name Soft Crab Shedder Status 08/01/19 21 1 CLOSED Fetus Data First Name Last Name Admitted to NICU Weight (g) Sex Living Outcome Pediatric Complications Fetus ID Race Codes Race Delivery Type , Induced 7790 Negro Calculation Initial Negro Date Initial Exam Date Initial Exam Provider Initial Ultrasound Date Last Menstrual Period Date Ultra Sound Weeks Gestation 0 Eighteen To Twenty Week Negro Update Ultra Sound Date Fundal Height At Umbil Quickening Date Ultra Sound Latest Weeks Gestation Final Negro Confirmed By Final Negro Confirmed Date Final Negro Date Ultra Sound Latest Days Gestation 0 0 Menstrual History Last Menstrual Date Menses Monthly On Bcp Conception Prior Menses Frequency Hcg Plus Date Menarche Onset Age Delivery Information Delivery Date Delivery Type Labor Anesthesia Weeks Gestation Incision Type Labor Labor Length Hrs Delivered By Post Complications Tubal Sterilization Discharge Date Comments 8 Discharge Information Feeding Method Contraceptive Method Maternal HG B and HCT Levels
--- OUTSIDE RECORDS SUMMARY | 2025-03-29 01:27 | XMS_ITS | Data Portability ---
Author Organization [facility] [employer], Main Office Address [address] [place] [address] Assessment No assessment recorded. Plan of Treatment Reminders Order Date Submit Date Provider Last Modified By Organization Details Last Modified Time Details Appointments None recorded. Lab None recorded. Referral None recorded. Procedures None recorded. Surgeries None recorded. Imaging XR, lumbosacral spine, 2 or 3 view 2022 023 [email or web address] 4 [facility], [address], [place], [address], 3 09:38:17 XR, hip, unilateral [address] [facility], [address], [place], [address], 3 16:08:09 Medication Orders Medrol (Geovanni) 4 mg tablets in a dose pack 2022 023 [facility] #[id number], [address] , [place], [address], 3 11:36:22 methocarbam ol 750 mg tablet 2022 023 [facility] #[id number], [address], [place], [address], 3 11:36:22 Patient TargetsNo targets recorded. Patient InstructionsNo instructions recorded. Reason for Referral None Reported. Results Created Date Observation Date Name Description Value Unit Range Abnormal Flag Note LastModifiedBy Organization Detail LastModifiedTime 01/15/2001/1601/16/2021 VITAM IN B12/F OLATE , SERUM PANEL vitamin B12 515 pg/mL 200-11 00 normal Not Available [address], [address], 01/19/2021 14:54:00 01/15/20 21 01/16/2021 VITAM IN B12/F OLATE , SERUM PANEL folate, serum 14.1 NG/mL normal Refer ence Range Low: <3.4 Borde rline : 3.4-5 .4 Patricia l: >5.4 Not Available [address], [address], 01/19/2021 14:54:00 01/15/20 21 01/16/2021 DENZEL TIN ferritin 18 NG/mL 16-154 normal Not Available [address], [address], 01/19/2021 14:53:59 01/15/20 21 01/16/2021 IRON AND TOTAL IRON PAT NG CAPAC ITY iron, total 130 mcg/d L 40-190 normal Not Available [address], [address], 01/19/2021 14:53:58 01/15/20 21 01/16/2021 IRON AND TOTAL IRON PAT NG CAPAC ITY iron binding capacity 400 mcg/d L_(ca lc) 250-45 0 normal Not Available [address], [address], 01/19/2021 14:53:58 01/15/20 21 01/16/2021 IRON AND TOTAL IRON PAT NG CAPAC ITY % saturation 33 %_(ca lc) 16-45 normal Not Available [address], [address], 01/19/2021 14:53:58 01/15/20 21 01/16/2021 CBC (INCL UDES DIFF/ PLT) white blood cell count 6.3 thous and/u L 3.8-10 .8 normal Not Available [address], [address], 01/19/2021 14:53:57 01/15/20 21 01/16/2021 CBC (INCL UDES DIFF/ PLT) red blood cell count 5.04 alva on/uL 3.80-5 .10 normal Not Available [address], [address], 01/19/2021 14:53:57 01/15/20 21 01/16/2021 CBC (INCL UDES DIFF/ PLT) hemoglobin 13.8 g/dL 11.7-1 5.5 normal Not Available [address], [address], 01/19/2021 14:53:57 01/15/20 21 01/16/2021 CBC (INCL UDES DIFF/ PLT) hematocrit 41.6 % 35.0-4 5.0 normal Not Available [address], [address], 01/19/2021 14:53:57 01/15/20 21 01/16/2021 CBC (INCL UDES DIFF/ PLT) MCV 82.5 fL 80.0-1 00.0 normal Not Available [address], [address], 01/19/2021 14:53:57 01/15/20 21 01/16/2021 CBC (INCL UDES DIFF/ PLT) MCH 27.4 pg 27.0-3 3.0 normal Not Available [address], [address], 01/19/2021 14:53:57 01/15/20 21 01/16/2021 CBC (INCL UDES DIFF/ PLT) MCHC 33.2 g/dL 32.0-3 6.0 normal Not Available [facility] [address], [address], 01/19/2021 14:53:57 01/15/20 21 01/16/2021 CBC (INCL UDES DIFF/ PLT) RDW 13.7 % 11.0-1 5.0 normal Not Available [address], [address], 01/19/2021 14:53:57 01/15/20 21 01/16/2021 CBC (INCL UDES DIFF/ PLT) platelet count 299 thous and/u L 140-40 0 normal Not Available [address], [address], 01/19/2021 14:53:57 01/15/20 21 01/16/2021 CBC (INCL UDES DIFF/ PLT) MPV 10.8 fL 7.5-12 .5 normal Not Available [address], [address], 01/19/2021 14:53:57 01/15/20 21 01/16/2021 CBC (INCL UDES DIFF/ PLT) absolute neutrophils 3308 cells /uL 1500-7 800 normal Not Available [address], [address], 01/19/2021 14:53:57 01/15/20 21 01/16/2021 CBC (INCL UDES DIFF/ PLT) absolute lymphocytes 2306 cells /uL 850-39 00 normal Not Available [address], [address], 01/19/2021 14:53:57 01/15/20 21 01/16/2021 CBC (INCL UDES DIFF/ PLT) absolute monocytes 277 cells /uL 200-95 0 normal Not Available [address], [address], 01/19/2021 14:53:57 01/15/20 21 01/16/2021 CBC (INCL UDES DIFF/ PLT) absolute eosinophils 378 cells /uL 15-500 normal Not Available [address], [address], 01/19/2021 14:53:57 01/15/20 21 01/16/2021 CBC (INCL UDES DIFF/ PLT) absolute basophils 32 cells /uL 0-200 normal Not Available [address], [address], 01/19/2021 14:53:57 01/15/20 21 01/16/2021 CBC (INCL UDES DIFF/ PLT) neutrophils 52.5 % normal Not Available [address], [address], 01/19/2021 14:53:57 01/15/20 21 01/16/2021 CBC (INCL UDES DIFF/ PLT) lymphocytes 36.6 % normal Not Available [address], [address], 01/19/2021 14:53:57 01/15/20 21 01/16/2021 CBC (INCL UDES DIFF/ PLT) monocytes 4.4 % normal Not Available [address], [address], 01/19/2021 14:53:57 01/15/20 21 01/16/2021 CBC (INCL UDES DIFF/ PLT) eosinophils 6.0 % normal Not Available [address], [address], 01/19/2021 14:53:57 01/15/20 21 01/16/2021 CBC (INCL UDES DIFF/ PLT) basophils 0.5 % normal Not Available [address], [address], 01/19/2021 14:53:57 01/15/20 21 01/16/2021 MAGNE SIUM magnesium 1.9 mg/dL 1.5-2. 5 normal Not Available [address] [place], [address], 01/19/2021 14:53:55 01/15/20 21 01/16/2021 HEMOG LOBIN A1C hemoglobin A1C 5.0 %_of_ total _HGB <5.7 normal Not Available [address], [address], 01/19/2021 14:53:54 01/15/20 21 01/16/2021 LIPID PANEL , STAND ROSANNE cholesterol, total 181 mg/dL <200 normal Not Available [address], [address], 01/19/2021 14:53:52 01/15/20 21 01/16/2021 LIPID PANEL , STAND ROSANNE HDL cholesterol 57 mg/dL > or = 50 normal Not Available [address], [address], 01/19/2021 14:53:52 01/15/20 21 01/16/2021 LIPID PANEL , STAND ROSANNE triglyceride s 86 mg/dL <150 normal Not Available [address], [address], 01/19/2021 14:53:52 01/15/20 21 01/16/2021 LIPID PANEL , STAND ROSANNE LDL-choleste rol 106 mg/dL _(lukas c) high Refer ence range : <100 Obed able range <100 mg/dL for prima ry preve ntion ; <70 mg/dL for patie nts with CHD or diabe tic patie nts with > or = 2 CHD risk facto rs. LDL-C is now calcu lated using the Alivia n-Hop kins calcu latgianni n, which is a valid ated novel metho d provi ding suleman r accur acy than the Fried shante equat ion in the estim ation of LDL-C . Alivia anderson SS et al. AMBER. 2013; 310(1 9): 2061- 2068 (http ://ed ucati on.Qu Janak donisBHR Groups. com/f aq/FA Q164) Not Available [address] [address] [place], [address], 01/19/2021 14:53:52 01/15/20 21 01/16/2021 LIPID PANEL , STAND ROSANNE chol/HDLC ratio 3.2 (calc ) <5.0 normal Not Available [facility] [address] [address] , [place], [address], 01/19/2021 14:53:52 01/15/20 21 01/16/2021 LIPID PANEL , STAND ROSANNE non HDL cholesterol 124 mg/dL _(lukas c) <130 normal For patie nts with diabe jaime plus 1 major ASCVD risk facto r, treat ing to a non-H DL-C goal of <100 mg/dL (LDL- C of <70 mg/dL ) is consi dered a thera pegregoryi c optio n. Not Available [address] , [place], [address], 01/19/2021 14:53:52 01/15/2001/16/2021 TSH+F REE T4 TSH 1.15 mIU/L normal Refer ence Range > or = 20 Years 0.40- 4.50 Pregn davis Range s First trime ster 0.26- 2.66 Secon d trime ster 0.55- 2.73 Third trime ster 0.43- 2.91 Not Available [facility] [address] , [place], [address], 01/19/2021 14:53:50 01/15/2001/16/2021 TSH+F REE T4 T4, free 1.4 NG/dL 0.8-1. 8 normal Not Available [facility] [address] [address] [place], [address], 01/19/2021 14:53:50 08/09/19 22 08/10/2021 URINA LYSIS REFLE X color yellow yellow normal Not Available [address], [address], 08/10/2021 10:14:08 08/09/19 22 08/10/2021 URINA LYSIS REFLE X appearance clear clear normal Not Available [address], [address], 08/10/2021 10:14:08 08/09/19 22 08/10/2021 URINA LYSIS REFLE X specific gravity 1.014 1.001- 1.035 normal Not Available [address], [address], 08/10/2021 10:14:08 08/09/19 22 08/10/2021 URINA LYSIS REFLE X pH 8.0 5.0-8. 0 normal Not Available [address], [address], 08/10/2021 10:14:08 08/09/19 22 08/10/2021 URINA LYSIS REFLE X glucose negati ve negati ve normal Not Available [address], [address], 08/10/2021 10:14:08 08/09/19 22 08/10/2021 URINA LYSIS REFLE X bilirubin negati ve negati ve normal Not Available [address], [address], 08/10/2021 10:14:08 08/09/19 22 08/10/2021 URINA LYSIS REFLE X ketones negati ve negati ve normal Not Available [address], [address], 08/10/2021 10:14:08 08/09/19 22 08/10/2021 URINA LYSIS REFLE X occult blood negati ve negati ve normal Not Available [address], [address], 08/10/2021 10:14:08 08/09/19 22 08/10/2021 URINA LYSIS REFLE X protein negati ve negati ve normal Not Available [address], [address], 08/10/2021 10:14:08 08/09/19 22 08/10/2021 URINA LYSIS REFLE X nitrite negati ve negati ve normal Not Available [facility] [address] [place], [address], 08/10/2021 10:14:08 08/09/19 22 08/10/2021 URINA LYSIS REFLE X leukocyte esterase negati ve negati ve normal Not Available [address], [address], 08/10/2021 10:14:08 08/09/19 22 08/10/2021 CBC (INCL UDES DIFF/ PLT) white blood cell count 8.2 thous and/u L 3.8-10 .8 normal Not Available [address], [address], 08/10/2021 10:14:08 08/09/19 22 08/10/2021 CBC (INCL UDES DIFF/ PLT) red blood cell count 4.64 alva on/uL 3.80-5 .10 normal Not Available [address], [address], 08/10/2021 10:14:08 08/09/19 22 08/10/2021 CBC (INCL UDES DIFF/ PLT) hemoglobin 13.0 g/dL 11.7-1 5.5 normal Not Available [address], [address], 08/10/2021 10:14:08 08/09/19 22 08/10/2021 CBC (INCL UDES DIFF/ PLT) hematocrit 39.7 % 35.0-4 5.0 normal Not Available [address], [address], 08/10/2021 10:14:08 08/09/19 22 08/10/2021 CBC (INCL UDES DIFF/ PLT) MCV 85.6 fL 80.0-1 00.0 normal Not Available [address], [address], 08/10/2021 10:14:08 08/09/19 22 08/10/2021 CBC (INCL UDES DIFF/ PLT) MCH 28.0 pg 27.0-3 3.0 normal Not Available [address], [address], 08/10/2021 10:14:08 08/09/19 22 08/10/2021 CBC (INCL UDES DIFF/ PLT) MCHC 32.7 g/dL 32.0-3 6.0 normal Not Available [address], [address], 08/10/2021 10:14:08 08/09/19 22 08/10/2021 CBC (INCL UDES DIFF/ PLT) RDW 13.9 % 11.0-1 5.0 normal Not Available [address], [address], 08/10/2021 10:14:08 08/09/19 22 08/10/2021 CBC (INCL UDES DIFF/ PLT) platelet count 337 thous and/u L 140-40 0 normal Not Available [address], [address], 08/10/2021 10:14:08 08/09/19 22 08/10/2021 CBC (INCL UDES DIFF/ PLT) MPV 10.3 fL 7.5-12 .5 normal Not Available [address] [place], [address], 08/10/2021 10:14:08 08/09/19 22 08/10/2021 CBC (INCL UDES DIFF/ PLT) absolute neutrophils 5338 cells /uL 1500-7 800 normal Not Available [address], [address], 08/10/2021 10:14:08 08/09/19 22 08/10/2021 CBC (INCL UDES DIFF/ PLT) absolute lymphocytes 1952 cells /uL 850-39 00 normal Not Available [address], [address], 08/10/2021 10:14:08 08/09/19 22 08/10/2021 CBC (INCL UDES DIFF/ PLT) absolute monocytes 295 cells /uL 200-95 0 normal Not Available [address], [address], 08/10/2021 10:14:08 08/09/19 22 08/10/2021 CBC (INCL UDES DIFF/ PLT) absolute eosinophils 574 cells /uL 15-500 high Not Available [address], [address], 08/10/2021 10:14:08 08/09/19 22 08/10/2021 CBC (INCL UDES DIFF/ PLT) absolute basophils 41 cells /uL 0-200 normal Not Available [address], [address], 08/10/2021 10:14:08 08/09/19 22 08/10/2021 CBC (INCL UDES DIFF/ PLT) neutrophils 65.1 % normal Not Available [address], [address], 08/10/2021 10:14:08 08/09/19 22 08/10/2021 CBC (INCL UDES DIFF/ PLT) lymphocytes 23.8 % normal Not Available [facility] [id number], [place], [address], 08/10/2021 10:14:08 08/09/19 22 08/10/2021 CBC (INCL UDES DIFF/ PLT) monocytes 3.6 % normal Not Available [address], [address], 08/10/2021 10:14:08 08/09/19 22 08/10/2021 CBC (INCL UDES DIFF/ PLT) eosinophils 7.0 % normal Not Available [facility] [address], [address], 08/10/2021 10:14:08 08/09/19 22 08/10/2021 CBC (INCL UDES DIFF/ PLT) basophils 0.5 % normal Not Available [address], [address], 08/10/2021 10:14:08 08/09/19 22 08/10/2021 COMPR EHENS LYN METAB OLIC PANEL glucose 115 mg/dL 65-139 normal Non-f astin g refer ence inter mathieu Not Available [address], [address], 08/10/2021 10:14:07 08/09/19 22 08/10/2021 COMPR EHENS LYN METAB OLIC PANEL urea nitrogen (BUN) 10 mg/dL 7-25 normal Not Available [address], [address], 08/10/2021 10:14:07 08/09/19 22 08/10/2021 COMPR EHENS LYN METAB OLIC PANEL creatinine 0.82 mg/dL 0.50-1 .10 normal Not Available [address], [address], 08/10/2021 10:14:07 08/09/19 22 08/10/2021 COMPR EHENS LYN METAB OLIC PANEL eGFR non-afr. kenyan 98 mL/mi n/1.7 3m2 > or = 60 normal Not Available [address], [address], 08/10/2021 10:14:07 08/09/19 22 08/10/2021 COMPR EHENS LYN METAB OLIC PANEL eGFR 114 mL/mi n/1.7 3m2 > or = 60 normal Not Available [address], [address], 08/10/2021 10:14:07 08/09/19 22 08/10/2021 COMPR EHENS LYN METAB OLIC PANEL BUN/creatini ne ratio not applic able (calc ) 6-22 Not Available [address], [address], 08/10/2021 10:14:07 08/09/19 22 08/10/2021 COMPR EHENS LYN METAB OLIC PANEL sodium 139 mmol/ L 135-14 6 normal Not Available [address], [address], 08/10/2021 10:14:07 08/09/19 22 08/10/2021 COMPR EHENS LYN METAB OLIC PANEL potassium 4.3 mmol/ L 3.5-5. 3 normal Not Available [address], [address], 08/10/2021 10:14:07 08/09/19 22 08/10/2021 COMPR EHENS LYN METAB OLIC PANEL chloride 103 mmol/ L 98-110 normal Not Available [address], [address], 08/10/2021 10:14:07 08/09/19 22 08/10/2021 COMPR EHENS LYN METAB OLIC PANEL carbon dioxide 30 mmol/ L 20-32 normal Not Available [address], [address], 08/10/2021 10:14:07 08/09/19 22 08/10/2021 COMPR EHENS LYN METAB OLIC PANEL calcium 9.5 mg/dL 8.6-10 .2 normal Not Available [address], [address], 08/10/2021 10:14:07 08/09/19 22 08/10/2021 COMPR EHENS LYN METAB OLIC PANEL protein, total 6.8 g/dL 6.1-8. 1 normal Not Available [address], [place], [address], 08/10/2021 10:14:07 08/09/19 22 08/10/2021 COMPR EHENS LYN METAB OLIC PANEL albumin 4.5 g/dL 3.6-5. 1 normal Not Available [address], [address], 08/10/2021 10:14:07 08/09/19 22 08/10/2021 COMPR EHENS LYN METAB OLIC PANEL globulin 2.3 g/dL_ (calc ) 1.9-3. 7 normal Not Available [address], [place], [address], 08/10/2021 10:14:07 08/09/19 22 08/10/2021 COMPR EHENS LYN METAB OLIC PANEL albumin/glob ulin ratio 2.0 (calc ) 1.0-2. 5 normal Not Available [address], [address], 08/10/2021 10:14:07 08/09/19 22 08/10/2021 COMPR EHENS LYN METAB OLIC PANEL bilirubin, total 0.5 mg/dL 0.2-1. 2 normal Not Available [address], [address], 08/10/2021 10:14:07 08/09/19 22 08/10/2021 COMPR EHENS LYN METAB OLIC PANEL alkaline phosphatase 60 U/L 31-125 normal Not Available [address] [address] [place], [address], 08/10/2021 10:14:07 08/09/19 22 08/10/2021 COMPR EHENS LYN METAB OLIC PANEL AST 53 U/L 10-30 high Not Available [address] [address] [address] , [place], [address], 08/10/2021 10:14:07 08/09/19 22 08/10/2021 COMPR EHENS LYN METAB OLIC PANEL ALT 27 U/L 6-29 normal Not Available [address] [address] [address] , [place], [address], 08/10/2021 10:14:07 11/01/19 22 11/03/2021 MEAGAN SCREE N, IFA, W/REF L TITER AND PATTE RN MEAGAN screen, ifa negati ve negati ve normal MEAGAN IFA is a first line scree n for detec ting the prese nce of up to appro ximat ray 150 autoa ntibo dies in vario us autoi mmune disea ses. A negat lny MEAGAN IFA resul t sugge sts an MEAGAN-a ssoci ated autoi mmune disea se is not prese nt at this time, but is not defin itive . If there is high clini lukas suspi cion for Sjogr en's syndr ome, testi ng for anti- SS-A/ Ro antib faviola shoul d be consi dered . Anti- Alda-1 antib faviola shoul d be consi dered for clini leyda suspe cted infla mmato ry myopa lorrie . AC-0: Negat lyn Inter natio nal Conse nsus on MEAGAN Patte rns (http s://d oi.or g/10. 1515/ [facility]- 2017- 0052) For addit ional infor randy vega e refer to http: //edu catgianni n.Que stDia gnost ics.c om/fa q/FAQ 177 (This link is being provi ded for infor adal jordan/ educa ric roqueo ses only. ) Not Available [address] [address] [place], [address], 11/03/2021 16:50:19 11/01/19 22 11/03/2021 VITAM IN B12/F OLATE , SERUM PANEL vitamin B12 1577 pg/mL 200-11 00 high Not Available [address], [address], 11/03/2021 16:50:19 11/01/19 22 11/03/2021 VITAM IN B12/F OLATE , SERUM PANEL folate, serum 16.9 NG/mL normal Refer ence Range Low: <3.4 Borde rline : 3.4-5 .4 Patricia l: >5.4 Not Available [address], [address], 11/03/2021 16:50:19 11/01/19 22 11/03/2021 THYRO ID PEROX IDASE ANTIB ODIES thyroid peroxidase antibodies 3 IU/mL <9 normal Not Available [address], [address], 11/03/2021 16:50:17 11/01/19 22 11/03/2021 TSH+F REE T4 TSH 1.29 mIU/L normal Refer ence Range > or = 20 Years 0.40- 4.50 Pregn davis Range s First trime ster 0.26- 2.66 Secon d trime ster 0.55- 2.73 Third trime ster 0.43- 2.91 Not Available [address] [address] [place], [address], 11/03/2021 16:50:14 11/01/19 22 11/03/2021 TSH+F REE T4 T4, free 1.3 NG/dL 0.8-1. 8 normal Not Available [address], [address], 11/03/2021 16:50:14 11/01/19 22 11/03/2021 IRON, TIBC AND DENZEL TIN PANEL iron, total 86 mcg/d L 40-190 normal Not Available [address], [address], 11/03/2021 16:50:13 11/01/19 22 11/03/2021 IRON, TIBC AND DENZEL TIN PANEL iron binding capacity 474 mcg/d L_(ca lc) 250-45 0 high Not Available [address], [address], 11/03/2021 16:50:13 11/01/19 22 11/03/2021 IRON, TIBC AND DENZEL TIN PANEL % saturation 18 %_(ca lc) 16-45 normal Not Available [address], [address], 11/03/2021 16:50:13 11/01/19 22 11/03/2021 IRON, TIBC AND DENZEL TIN PANEL ferritin 6 NG/mL 16-154 low Not Available [address], [address], 11/03/2021 16:50:13 10/28/19 22 10/26/2021 MRI, brain , w/wo contr ast No observ ation record ed. [id number] [facility] (Imaging) [address], [place], [address], 08/22/2022 21:33:26 11/02/19 23 11/01/2022 XR, hip, unila teral No observ ation record ed. [email or web address] [facility] [address], [place], [address], 11/07/2022 09:38:09 Result Notes None recorded. Problems Name Problem SNOMED Code Status Onset Date Resolution Date Notes Provider Name and Address Organization Details Recorded Time Asthma 590295699 Active 2020 Not Available [facility] 3 21:31:44 Postural dizziness 208948152 Active 2021 Not Available [facility] 3 21:31:44 Pre-surger y testing Active 2021 Not Available [facility] 3 21:31:44 Pain of left hip joint 0533274734746 00 Active 2021 Not Available [facility] 3 21:31:44 Major depressive disorder 041100724 Active 2021 DARIN Gonzales, [facility] 3 11:34:07 Loss of hair 523419791 Active 2021 Not Available [facility] 3 21:31:44 Cervical lymphadeno omega 661531069 Active 2021 Not Available [facility] 3 21:31:44 Persistent cough 237212437 Active 2021 Not Available [facility] 3 21:31:44 Night sweats 66593491 Active 2021 Not Available [facility] 3 21:31:45 Candidiasi s of vagina 63362637 Active 2021 Not Available [facility] 3 21:31:45 Right side sciatica 1004312979594 01 Active 2022 MADHAVI Petty [address], [address], [place], [address] , [facility] [employer] [facility] 3 11:34:51 Lumbar radiculopa thy 555964096 Active 2022 MADHAVI Petty [address], [address], [place], [address] , [facility] [employer] [facility] 3 11:35:26 Pain of right hip joint 9037125802644 02 Active 2022 MADHAVI Petty [address], [address], [place], [address] , [facility] [employer] [facility] 3 11:35:40 Acute left otitis media 758985817 Active 2022 MADHAVI Petty [address], [address], [place], [address] , [facility] [employer] [facility] 3 17:06:22 Problem Notes None recorded. Procedures Surgical History Date Name Laterality Status Provider Name and Address Organization Details Recorded Time 08/17/19 arthroscopic repair of superior labrum anterior to posterior tear completed Not Available [facility] 08/22/2022 21:30:24 Remove tonsils and adenoids completed Not Available [facility] 08/22/2022 21:30:24 Sinus Surgery completed Not Available [facility] 08/22/2022 21:30:24 Imaging Results None recorded. Procedure Notes None recorded. Medical Equipment None Reported. Allergies No known drug allergies Medications Name Sig Start Date Stop Date Status Note LastModified by Organization Details LastModified Time cyclobenz aprine 10 mg tablet TAKE 1 TABLET BY MOUTH 3 TIMES A DAY NEEDED FOR MUSCLE SPASM active Not Available Not Available No t Available buspirone 5 mg tablet TAKE 1 TABLET BY MOUTH TWICE A DAY active Not Available Not Available No t Available prednison e 10 mg tablet PLEASE SEE ATTACHED FOR DETAILED DIRECTIO NS active Not Available Not Available No t Available clindamyc in HCl 300 mg capsule TAKE 1 CAPSULE BY MOUTH TWICE A DAY FOR 7 DAYS active Not Available Not Available No t Available fluconazo le 150 mg tablet TAKE 1 TABLET BY MOUTH NOW THEN REPEAT IN 3 DAYS active Not Available Not Available No t Available hydrocodo ne 5 mg-acetam inophen 325 mg tablet 08/31 completed Not Available Not Available Not Available tretinoin 0.025 % topical cream 11/01 completed Not Available Not Available Not Available fluconazo le 200 mg tablet TAKE 1 TABLET ON DAYS 1, 4 & 7 OF A SEVEN DAY TIME SPAN. active Not Available Not Available No t Available meloxicam 15 mg tablet Take 1 tablet every day by oral route with meals. active Not Available Not Available No t Available ondansetr on HCl 4 mg tablet TAKE 1 TABLET BY MOUTH EVERY 8 HOURS NEEDED FOR NAUSEA AND VOMITING 05/14 completed Not Available Not Available Not Available prednison e 20 mg tablet take 4 tabs po daily x 2 days then 3 tabs po daily x 2 days then 2 tabs po daily x 2 days then 1 tab po daily x 2 days then 1/2 tab po daily x 2 days. 10/21 completed Not Available Not Available Not Available dextroamp hetamine- amphetami ne 10 mg tablet TAKE 1 TABLET BY MOUTH EVERY DAY IN THE AFTERNOO N 11/01 completed Not Available Not Available Not Available spironola ctone 100 mg tablet TAKE 1 TABLET BY MOUTH EVERY DAY 11/01 completed Not Available Not Available Not Available acetamino phen 300 mg-codein e 30 mg tablet TAKE 1 TABLET BY MOUTH EVERY 8 HOURS NEEDED 10/22 completed Not Available Not Available Not Available ciproflox acin 500 mg tablet active Not Available Not Available No t Available sulfameth oxazole 800 mg-trimet hoprim 160 mg tablet TAKE 1 TABLET BY MOUTH EVERY 12 HOURS active Not Available Not Available No t Available tramadol 50 mg tablet TAKE 1 TABLET BY MOUTH EVERY 6 HOURS. active Not Available Not Available No t Available spironola ctone 25 mg tablet TAKE 1 TABLET BY MOUTH EVERY DAY 05/14 completed Not Available Not Available Not Available dextroamp hetamine- amphetami ne 30 mg tablet TAKE 1 TABLET BY MOUTH EVERY DAY IN THE MORNING 11/01 completed Not Available Not Available Not Available methocarb kate 750 mg tablet TAKE 1 TABLET BY MOUTH 3 TIMES A DAY NEEDED active Not Available Not Available No t Available ibuprofen 200 mg tablet Take 4 tablets every day by oral route as needed. 10/22 completed Currentl y taking 800mg daily for back pain for past two weeks 10/23/19 20-EG Not Available Not Available Not Available gabapenti n 300 mg capsule TAKE 1 CAPSULE AT NIGHT AND INCREASE TO 2 AT NIGHT AFTER 3 DAYS TOLDERAT ED 08/08 completed Not Available Not Available Not Available omeprazol e 20 mg capsule,d elayed release Take 1 capsule twice a day by oral route with meals. active Not Available Not Available No t Available aspirin 81 mg chewable tablet 05/14 completed Not Available Not Available Not Available diclofena c sodium 75 mg tablet,de layed release TAKE 1 TABLET BY MOUTH TWICE A DAY active Not Available Not Available No t Available norgestim ate-ethin yl estradiol 0.18mg/0. 215mg/0.2 5mg-0.035 mg(28)tab let TAKE 1 TABLET BY MOUTH EVERY DAY active Not Available Not Available No t Available methylpre dnisolone 4 mg tablets in a dose pack TAKE 6 TABLETS ON DAY 1 DIRECTED ON PACKAGE AND DECREASE BY 1 TAB EACH DAY FOR A TOTAL OF 6 DAYS active Not Available Not Available No t Available albuterol sulfate HFA 90 mcg/actua tion aerosol inhaler TAKE 2 PUFFS BY MOUTH EVERY 4 HOURS NEEDED 2022 active Not Available Not Available Not Avai lable naproxen 500 mg tablet TAKE 1 TABLET BY MOUTH TWICE A DAY WITH MEALS 05/14 completed Not Available Not Available Not Available spironola ctone 50 mg tablet TAKE 1 TABLET BY MOUTH EVERY DAY 05/14 completed Not Available Not Available Not Available diazepam 5 mg tablet active Not Available Not Available Not Available amoxicill in 875 mg-potass ium clavulana te 125 mg tablet TAKE 1 TABLET BY MOUTH EVERY 12 HOURS active Not Available Not Available No t Available clindamyc in phosphate 1 % topical solution 10/31 completed Not Available Not Available Not Available clindamyc in 1 % lotion active Not Available Not Available Not Available escitalop bailee 10 mg tablet TAKE 1 TABLET BY MOUTH EVERY DAY FOR 30 DAYS 11/01 completed Not Available Not Available Not Available escitalop bailee 20 mg tablet TAKE 1 TABLET BY MOUTH EVERY DAY active Not Available Not Available No t Available bupropion HCl XL 300 mg 24 hr tablet, extended release TAKE 1 TABLET BY MOUTH EVERY DAY 11/01 completed Not Available Not Available Not Available bupropion HCl XL 150 mg 24 hr tablet, extended release TAKE 1 TABLET EVERY DAY BY MOUTH IN THE MORNING. active Not Available Not Available No t Available escitalop bailee 5 mg tablet TAKE 1 TABLET BY MOUTH EVERY DAY FOR 14 DAYS 11/01 completed Not Available Not Available Not Available Tri-Sprin ignacio (28) 10/25 completed Not Available Not Available Not Available Vyvanse 30 mg capsule TAKE 1 CAPSULE BY MOUTH EVERY DAY IN THE MORNING active Not Available Not Available No t Available Vyvanse 20 mg capsule TAKE 1 CAPSULE BY MOUTH EVERY DAY IN THE MORNING 11/01 completed Not Available Not Available Not Available Senexon-S 8.6 mg-50 mg tablet TAKE 1 TABLET BY MOUTH TWICE A DAY active Not Available Not Available No t Available Eliquis 2.5 mg tablet active Not Available Not Available Not Available dapsone 7.5 % topical gel with pump APPLY A PEA-SIZE D AMOUNT ONCE DAILY TO COVER AREAS OF FACE WITH THIN LAYER RUB IN GENTLY/C OMPLETEL Y 11/01 completed Not Available Not Available Not Available Xhance 93 mcg/actua tion breath activated aerosol active Not Available Not Available Not Available Vitals Date Recorded Body mass index (BMI) Body height Oxygen saturation Oxygen saturation in Arterial blood by Pulse oximetry Heart rate Respiratory rate Body temperature Body weight Systolic And Diastolic Provider Name and Address Organization Details Last Updated DateTime 2 26.5 kg/m2 167.64 cm 98 % 98 % 105 /min 16 /min 98.8 [degF] 41058.8 7 g 120/78 mm[Hg] Not Available [facility] 3 21:31:03 Date Recorded Body mass index (BMI) Body height Oxygen saturation Oxygen saturation in Arterial blood by Pulse oximetry Heart rate Respiratory rate Body temperature Body weight Systolic And Diastolic Provider Name and Address Organization Details Last Updated DateTime 2 26.8 kg/m2 167.64 cm 99 % 99 % 98 /min 16 /min 97.9 [degF] 12497.3 3 g 122/80 mm[Hg] Not Available [facility] 3 21:31:03 Date Recorded Body height Body temperature Body mass index (BMI) Body weight Respiratory rate Oxygen saturation Oxygen saturation in Arterial blood by Pulse oximetry Heart rate Systolic And Diastolic Provider Name and Address Organization Details Last Updated DateTime 3 167.64 cm 98.3 [degF] 24.4 kg/m2 23377.4 5 g 16 /min 98 % 98 % 110 /min 122/80 mm[Hg] DARIN Gonzales [place] - [place] [facility] 3 11:18:47 Date Recorded Body mass index (BMI) Body height Oxygen saturation Oxygen saturation in Arterial blood by Pulse oximetry Heart rate Body temperature Body weight Systolic And Diastolic Provider Name and Address Organization Details Last Updated DateTime 1 27.1 kg/m2 167.64 cm 98 % 98 % 76 /min 97.6 [degF] 26081.4 4 g 120/82 mm[Hg] Not Available [facility] 3 21:31:03 Date Recorded Body height Oxygen saturation Oxygen saturation in Arterial blood by Pulse oximetry Heart rate Body temperature Systolic And Diastolic Provider Name and Address Organization Details Last Updated DateTime 2 167.64 cm 98 % 98 % 109 /min 98 [degF] 110/80 mm[Hg] Not Available [facility] 3 21:31:03 Social History Question Answer Notes LastModified by Organizat ion Details LastModified Time Tobacco Smoking Status Former Smoker Not Available [facility] 08/22/2022 21:30:03 What Is Your Level Of Caffeine Consumption? Moderate [id number] Information not available 08/22/2022 How Much Tobacco Do You Chew? None [id number] Information not available 08/22/2022 In The 14 Days Before Symptom Onset, Have You Had Close Contact With A Laboratory-confirm ed COVID-19 While That Case Was Ill? No [id number] Information not available 08/22/2022 In The 14 Days Before Symptom Onset, Have You Had Close Contact With A Person Who Is Under Investigation For COVID-19 While That Person Was Ill? No [id number] Information not available 08/22/2022 What Type Of Diet Are You Following? REGULAR [id number] Information not available 08/22/2022 Which Illicit Or Recreational Drugs Have You Used? None [id number] 1110 Information not available 08/22/2022 Have There Been Any Changes To Your Family Or Social Situation? No [id number] Information not available 08/22/2022 Do You Use Insect Repellent Routinely? No [email or web address] Information not available 10/31/2022 What Is Your Relationship Status? [id number] Information not available 08/22/2022 Do You Use Your Seat Belt Or Car Seat Routinely? Yes [id number] Information not available 08/22/2022 Do You Have Smoke And Carbon Monoxide Detectors In Your Home? Yes MIGRATION.[id number] 5463 Information not available 08/22/2022 Do You Use Sunscreen Routinely? Yes [email or web address] Information not available 10/31/2022 Have You Recently Traveled Abroad? No [id number] 1725 Information not available 08/22/2022 Do You Have Any Dietary Restrictions? No MIGRATION.[id number] 7644 Information not available 08/22/2022 Sex: Unknown Functional Status Question Answer Note LastModified by Organizat ion Details LastModified Time Do you use any illicit or recreational drugs? No [id number] 0922 Information not available 08/22/2022 Do you or have you ever used any other forms of tobacco or nicotine? No MIGRATION.[id number] 3123 Information not available 08/22/2022 What is your level of alcohol consumption? Occasional [id number].[id number] 3728 Information not available 08/22/2022 Do you or have you ever used smokeless tobacco? Never used smokeless tobacco MIGRATION.[id number] 7064 Information not available 08/22/2022 Are you currently employed? 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 Never used electronic cigarettes MIGRATION.[id number] 6070 Information not available 08/22/2022 What is your exercise level? Moderate MIGRATION.932138 4503 Information not available 08/22/2022 Mental Status None recorded. Family History Relationship Description Onset Age of this Age Resolved Age Notes LastModified by Organization Details LastModified Time Mother Hypertensive disorder [id number] Not available 08/22/2022 21:30:26 Mother Malignant neoplasm of uterus [id number] Not available 08/22/2022 21:30:26 Mother Diabetes mellitus [id number] Not available 08/22/2022 21:30:26 Medical History Condition Response DEPRESSION (INCLUDING POST ) Y ASTHMA Y Gynecological History Statement/Question Response Abnormal Pap N Date of Last Mammogram Date of Last Colonoscopy Most Recent Bone Density Sexually Active? Y Menses Monthly Y Date of Last Pap 04/24/2017 Current Control Method BCPs Obstetrics History GPAL:G 1 P 0 0 1 0 Type Value Induced 1 Total 1 Past Encounters Encounter ID Performer Location Encounter Start Date Encounter Closed Date Diagnosis/Indication Diagnosis SNOMED-CT Code Diagnosis ICD10 Code Diagnosis IMO Codes Diagnosis Note [id number] MADHAVI Petty [facility] [address] [place] [address] 10/26/2020 00:00:00 11/17/2020 00:13:26 [id number] MADHAVI Petty [facility] [place] [address] [place] [address] 01/13/2021 00:00:00 01/21/2021 10:44:10 [id number] MADHAVI Petty [facility] [place] [address] [place] [address] 08/09/2021 00:00:00 08/14/2021 14:09:30 [id number] MADHAVI Petty[facility] [place] [address] [place] [address] 08/31/2021 00:00:00 09/21/2021 11:10:10 [id number] [facility] [place] [address] [place] [address] 05/14/2022 00:00:00 05/22/2022 22:39:08 [id number] MADHAVI Petty [facility] [place] [address] [place] [address] 11/01/2022 11:07:04 11/01/2022 11:38:24 Right side sciatica [id number] 62747 M54.31 start MDP and muscle relaxer course. Lumbar radiculopathy 128 267195 M54.16 check xray ls spine Pain of ri ght hip joint [id number] 45095 M25.551 check xray right hip joint Health Concerns Section Related Observation LastModified by Organization Detai ls LastModified Time None Recorded Concern Status LastModified by Organization Details LastModified Time None Recorded Advance Directives Directive None Recorded Payers Insurance Date Sequence Insurance Name Policy Number Policy Rodriguez Covered Member ID Rodriguez Member ID Guarantor Name 11/21/2022 1 [place] [id number] Juventino Kimball [id number] Malika Kimball Notes Date Note Type Note Provider Name and Address Organization Details Recorded Time 11/01/2022 text/html Back PainReporte d by PatientHPIFor location, patient reportspain radiating to the buttocks (r side). For quality, patient reportssharp. For severity, patient reportsworseningpa in level 7/10,moderate (5-7),interference with sleep, andinterference with work(worse in the morning and night). For associated symptoms, patient reportsweak limbsbut reportsno fever,no numbness of the legs/feet,no tingling,no incontinence, andno shortness of breath(pulled a muscle on l side of back while limping). For duration, patient reportsintermittent . For onset/timing, patient [id number] ago. For context, (no known injury but she did have 2 hip surgeries on the l side.). For alleviating factors, (heat). For aggravating factors, (weight on the r leg, standing/walking a long time.).She fell last night. She says she started to walk and put pressure on her R foot she fell. She landed on the R side as well. MADHAVI Petty [address] [facility], [facility] [address], [place], [address], [place] [facility] 11/21/2022 22:22:31 OBGyn Episode No OBEpisode recorded.
--- OUTSIDE RECORDS SUMMARY | 2025-03-29 01:27 | XMS_ITS | Encounter Summary ---
Author Organization [facility] Healthcare Address [address] [place] [address] Care Team Providers Care Tufting Machine Fixer Name Role Phone Janel Neff Primary Care Pr ovider Davidson Renee ELECTRICAL TEST ENGINEER Unavailable [phone] Encounter Details Date Type Department Care Team (Late st Contact Info) Description 10/19/2020 Telephone [facility] Radiology [address] [place] [address] Elsy Liu MD [address] [place] [address] Social History Tobacco Use Types Packs/Day Years Used Date Smoking Tobacco: Former Cigarettes Q uit: 2017 Smokeless Tobacco: Never Alcohol Use Standard Drinks/Week Comments Yes 0 (1 standard drink = 0.6 oz pur e alcohol) once per month Comments No Sex and Gender Information Value Date Recorded Sex Assigned at Not on file Legal Sex Female 10:27 AM MATERIAL YARD CLERK Gender Identity Female 09/23/2020 8:26 AM CDT Sexual Orientation Straight 09/23/2020 8: 26 AM CDT 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
--- OUTSIDE RECORDS SUMMARY | 2025-03-29 01:28 | XMS_ITS | Clinical Summary ---
Author Organization [facility] Address [address] [place] [address] Care Team Providers Care Power Generation Engineer Name Role Phone Janel Neff Primary Care Pr ovider Davidson Renee WELLNESS PROGRAM MANAGER Unavailable [phone] Allergies No known active allergies Medications albuterol HFA (PROVENTIL HFA,VENTOLIN HFA,PROAIR HFA) 90 mcg/actuation inhaler Inhale 2 puffs every 4 (four) hours as needed Uses daily Active dextroamphetamine-amp hetamine (AdderalL) 20 mg tablet 1 tablet (20 mg total) 4 Active Symbicort 160-4.5 mcg/actuation inhaler 4 Active busPIRone (BUSPAR) 5 mg tablet Take 1 tablet (5 mg total) by mouth 2 (two) times a day as needed (anxiety) Active escitalopram (LEXAPRO) 10 mg tablet Take 1 tablet (10 mg total) by mouth daily Active lelwvkpn-yem-diija acid-biotin 66.7-1,000 mcg tablet Take 1 tablet by mouth daily Active adalimumab-atto (Amjevita,CF,) 40 mg/0.4 mL syringeIndications:No n-Radiographic Axial Spondyloarthritis Inject 40 mg under the skin every 14 (fourteen) days 0.8 mL 11 5 11/21/19 26 Active Active Problems Problem Noted Date Diagnosed Date Nausea and vomiting 04/13/2024 Abnormal weight loss 04/13/2024 Change in bowel habits 04/13/2024 Ankylosing spondylitis lumbar region 04/07/2024 Lumbar radiculopathy 11/01/2022 Pain of right hip joint 11/01/2022 Pain of left hip joint 08/08/2021 Postural dizziness 08/08/2021 Asthma 09/23/2020 Labral tear of hip, degenerative 02/04/2020 Overview (02/04/2020): Added automatically from request for surgery [id number] Femoroacetabular impingement of left hip 020 Overview (02/04/2020): Added automatically from request for surgery [id number] Surgical History Surgery Date Site/Laterality Comments TONSILLECTOMY SINUS SURGERY FLUORO GUIDED ASPIRATION OR INJECTION LARGE JOINT LEFT 03/03/2020 Left HIP SURGERY Left FLUORO GUIDED ASPIRATION OR INJECTION LARGE JOINT LEFT 11/23/2020 Left IR INJECTION ARTHROGRAM SI J OINT RIGHT INCLUDES IMAGING GUIDANCE 03/08/2023 Right UPPER GASTROINTESTINAL ENDOSCOPY Medical History Medical History Date Comments Allergic rhinitis Asthma Gastritis Nausea and vomiting 04/13/2024 GERD (gastroesophageal reflux disease) Chronic diarrhea Ankylosing spondylitis Family History Medical History Relation Name Comments Mental illness Brother 1 Testicular cancer Brother 2 Mental illness Father Arthritis Mother Cancer Mother uterine or ovar jeferson cancer and had full hysterectomy. Clotting disorder Mother was on blo od thinners and got blood clots and from this. Deep vein thrombosis Mother several Diabetes Mother Hypertension Mother Anesthesia problems Neg Hx Relation Name Status Comments Brother 1 Brother 2 Alive Father Alive Mother Social History Tobacco Use Types Packs/Day Years Used Date Smoking Tobacco: Former Cigarettes Q uit: 2017 Passive Smoke Exposure: Never Smokeless Tobacco: Never Tobacco Cessation:Counseling Given: Not Answered Alcohol Use Standard Drinks/Week Comments Yes 0 (1 standard drink = 0.6 oz pur e alcohol) once per month Social Connection and Isolation Panel Answer Date Recorded In a typical week, how many times do you talk on the phone with family, friends, or neighbors? Never 09/30/2023 How often do you get together with friends or re latives? Never 09/30/2023 How often do you attend orthodoxy or voodoo serv ices? Never 09/30/2023 Do you belong to any clubs o r organizations such as orthodoxy groups, unions, fraternal or athletic groups, or school groups? No 09/30/2023 How often do you attend meet ings of the clubs or organizations you belong to? Not asked 09/30/2023 Are you , , di vorced, , never , or living with a partner? 09/30/2023 AUDIT-C Answer Date Recorded Q1: How often do you have a drink containing alcohol? Never 05/08/2024 Q2: How many drinks containi ng alcohol do you have on a typical day when you are drinking? Patient does not drink Q3: How often do you have si x or more drinks on one occasion? Never 05/08/2024 Overall Financial Resource Strain (CARDIA) Answe r Date Recorded How hard is it for you to pa y for the very basics like food, housing, medical care, and heating? Not hard at all 09/30/2023 PHQ-2 Answer Date Recorded Patient Health Questionnaire-2 Score 0 09/30/2023 [facility] - Occupational Stress Questionnaire Answer Date Recorded Do you feel stress - tense, restless, nervous, or anxious, or unable to sleep at night because your mind is troubled all the time - these days? Only a little 09/30/2023 Exercise Vital Sign Answer Date Recorde d On average, how many days pe r week do you engage in moderate to strenuous exercise (like a brisk walk)? 5 days 09/30/2023 On average, how many minutes do you engage in exercise at this level? 110 min 09/30/2023 Hunger Vital Sign Answer Date Recorded Within the past 12 months, y ou worried that your food would run out before you got the money to buy more. Never true 09/30/19 24 Within the past 12 months, t he food you bought just didn't last and you didn't have money to get more. Never true 09/30/2023 PRAPARE - Transportation Answer Date Re corded In the past 12 months, has l ack of transportation kept you from medical appointments or from getting medications? No 01/2024 In the past 12 months, has l ack of transportation kept you from meetings, work, or from getting things needed for daily living? No 09/30/2023 Housing Stability Vital Sign Answer [place] e Recorded In the last 12 months, was t here a time when you were not able to pay the mortgage or rent on time? No 09/30/2023 In the last 12 months, how many places have you lived? 1 09/30/2023 In the last 12 months, was t here a time when you did not have a steady place to sleep or slept in a residential (including now)? No 09/30/2023 Personal Safety Answer Date Recorded Have you ever been in or are you currently in a harmful physical or emotional relationship or is someone making you feel afraid or unsafe? 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 Not on file Not on file Obstetrics History Last Filed Vital Signs Vital Sign Reading Time Taken Comments Blood Pressure 120/77 07/07/2024 3:13 PM PETROLEUM ENGINEERING PROFESSOR Pulse 112 07/07/2024 3:13 PM PETROLEUM ENGINEERING PROFESSOR Temperature 36.8 C (98.2 F) 07/07/2024 3:13 PM PETROLEUM ENGINEERING PROFESSOR Respiratory Rate 28 05/14/2024 2:05 PM PETROLEUM ENGINEERING PROFESSOR Oxygen Saturation 98% 07/07/2024 3:13 PM PETROLEUM ENGINEERING PROFESSOR Inhaled Oxygen Concentration - - Weight 68.9 kg (152 lb) 07/07/2024 3:13 PM PETROLEUM ENGINEERING PROFESSOR Height 165.1 cm (5' 5) 07/07/2024 3:13 PM PETROLEUM ENGINEERING PROFESSOR Body Mass Index 25.29 07/07/2024 3:13 PM PETROLEUM ENGINEERING PROFESSOR Plan of Treatment Health Maintenance Due Date Last Done Comments Cervical Cancer Screening 1994 Hepatitis C Screening 1994 DTaP/Tdap/Td Vaccine (1 - Tdap) 2005 Varicella Vaccines (1 of 2 - 13+ 2-dose series) 2007 Hepatitis B Screening 2012 Regular Well Visit/Exam 18-64 2012 Pneumococcal vaccine <65 (1 of 2 - PCV) 2013 HPV Vaccines (1 - 3-dose SCDM series) 2021 Depression Screening 09/29/2024 09/30/2023 Influenza Vaccine (#1) 2025 Medical Devices Implanted Type Area Director Of Technology Device Identifier Shelf Expiration Date Model / Serial / Lot [employer] [id number] Cinchlock Ss Knotless Data Migration Lead Lock [place] Suture Labrum - [id number] Implanted:Qty: 1 on 03/24/2020 by Elsy Liu MD at [facility] [place] Left: Hip [employer] [id number] 03/07/2021 [id number] / / [id number] P[employer] [id number] Cinchlock Ss Knotless Data Migration Lead Lock [place] Suture Labrum - [id number] Implanted:Qty: 1 on 03/24/2020 by Elsy Liu MD at [facility] Left: Hip [employer] [id number] 03/07/2021 [id number] / / [id number] Suture [place] Peek, Mini Hip Pushlock Implanted:Qty: 2 on 08/17/2021 by Josue Baron MD at [facility] Left: Hip [employer] [id number] 01/21/2026 AR-2924PH S / N/A / [id number] Description:REF AR-2924PHS [facility] ITEM#[id number] IS ACTIVE IN [facility], REQ ENTERED TO MAKE AVAILABLE TO CHARGE 08/18/21 [employer] Ar-7535 Fiberlink Arthrex Suturetape 1.3mm Tape Suture Nonabsorbable - [id number] Implanted:Qty: 3 on 08/17/2021 by Josue Baron MD at [facility] Left: Hip [employer] 07/24/2025 AR-7535 / / Explanted Type Area Director Of Technology Device Identifier Shelf Expiration Date Model / Serial / Lot [place] [facility] [id number] Xbraid 1.2mm Suture Nonabsorbable Titanium Uhmwpe Nonsterile - [id number] Explanted:Qty: 2 on 03/24/2020 by Elsy Liu MD at [facility] [place] Left: Hip [place] [facility] [id number] 02/04/2021 [id number] / / [id number] Description:THIS IS A SUTURE NOT AN IMPLANT [place] [employer] [place] [facility] Advance Directives For more information, please contact: [phone] * Full Code (Latest Code Status on File) Date Activated Date Inactivated Comments 05/14/2024 12:48 PM 05/14/2024 6:23 PM Care Teams Power Generation Engineer Relationship Specialty Start Date End Date Janel Neff PA PCP - General Physician Transmission And Coordination Engineer 12/10/19 Davidson Renee NP [address] [place] [address] [place] [address] Nurse Practitioner Nurse Practitioner 08/17/21
--- OUTSIDE RECORDS SUMMARY | 2025-03-29 01:28 | XMS_ITS | Data Portability ---
Author Organization [facility] Address [address] [place] [address] Care Team Providers Care Art Sales Consultant Name Role Phone BRIANA CHI Primary Care Provider Unavailab le Assessment No assessment recorded. Plan of Treatment Reminders Order Date Submit Date Provider Last Modified By Organization Details Last Modified Time Details Appointments None recorded. Lab TSH + free T4, serum 2024 025 [facility], [address], [place], [address], 5 07:07:44 T3, free, serum or plasma 2024 025 [facility], [address], [place], [address], 5 07:07:49 CBC w/ auto diff 2024 025 [facility], [address], [place], [address], 5 07:07:48 CMP, serum or plasma 2024 025 [place] [facility], [address], [place], [address], 5 07:07:44 vitamin B12 + folate, serum or blood 2024 025 [place] [facility], [address], [place], [address], 5 07:07:46 urinalysis complete, reflex culture 2024 025 [facility], [address], [place], [address], 5 07:07:46 lipid panel, serum 2024 025 [facility], [address], [place], [address], 5 07:07:43 HbA1c (hemoglobin A1c), blood 2024 025 [facility], [address], [place], [address], 5 07:07:47 TSH + free T4, serum 2023 024 [facility], [address], [place], [address], 4 16:36:20 T3, free, serum or plasma 2023 024 [facility], [address], [place], [address], 4 16:36:24 thyroperoxi dase Ab, serum 2023 024 [facility], [address], [place], [address], 4 16:36:23 CBC w/ auto diff 2023 024 [facility], [address], [place], [address], 4 16:36:22 CMP, serum or plasma 2023 024 [facility], [address], [place], [address], 4 16:36:20 vitamin B12 + folate, serum or blood 2023 [facility], [address], [place], [address], 4 16:36:21 urinalysis complete, reflex culture 2023 024 [facility], [address], [place], [address], 4 16:36:21 lipid panel, serum 2023 [facility], [address], [place], [address], 4 16:36:19 HbA1c (hemoglobin A1c), blood 2023 [facility], [address], [place], [address], 4 16:36:22 Referral None recorded. Procedures None recorded. Surgeries None recorded. Imaging US, thyroid 2024 025 [facility], [address], [place], [address], 5 17:43:14 Medication Orders Symbicort 160 mcg-4.5 mcg/actuati on HFA aerosol inhaler 2023 024 [facility] #[id number], [address], [place], [address], 4 10:49:38 albuterol sulfate HFA 90 mcg/actuati on aerosol inhaler 2023 024 [facility] #[id number], [address], [place], [address], 4 10:49:38 Patient TargetsNo targets recorded. Patient InstructionsNo instructions recorded. Reason for Referral None Reported. Results Created Date Observation Date Name Description Value Unit Range Abnormal Flag Note LastModifiedBy Organization Detail LastModifiedTime 01/17/20 24 01/18/2024 LIPID PANEL W/ CHOL/ HDL RATIO cholesterol, total 174 mg/dL 100-19 9 Not Available [facility] ([facility]) [address] [place], [address], 01/20/2024 16:36:19 01/17/20 24 01/18/2024 LIPID PANEL W/ CHOL/ HDL RATIO triglyceride s 39 mg/dL 0-149 Not Available [facility] ([facility]) [address] [place], [address], 01/20/2024 16:36:19 01/17/20 24 01/18/2024 LIPID PANEL W/ CHOL/ HDL RATIO HDL cholesterol 77 mg/dL >39 Not Available [facility] ([facility]) [address] [place], [address], 01/20/2024 16:36:19 01/17/20 24 01/18/2024 LIPID PANEL W/ CHOL/ HDL RATIO VLDL cholesterol lukas 8 mg/dL 5-40 Not Available [facility] ([facility]) [address] [place], [address], 01/20/2024 16:36:19 01/17/20 24 01/18/2024 LIPID PANEL W/ CHOL/ HDL RATIO LDL chol calc ([facility]) 89 mg/dL 0-99 Not Available [facility]) [address] [place], [address], 01/20/2024 16:36:19 01/17/20 24 01/18/2024 LIPID PANEL W/ CHOL/ HDL RATIO T. chol/HDL ratio 2.3 ratio 0.0-4. 4 T. Chol/ HDL Ratio Men Women 1/2 Avg.R isk 3.4 3.3 Avg.R isk 5.0 4.4 2X Avg.R isk 9.6 7.1 3X Avg.R isk 23.4 11.0 Not Available [facility] ([facility]) [address] [place], [address], 01/20/2024 16:36:19 01/17/20 24 01/18/2024 TSH+F REE T4 TSH 2.350 uIU/m L 0.450- 4.500 Not Available [facility] ([facility]) [address] [place], [address], 01/20/2024 16:36:20 01/17/20 24 01/18/2024 TSH+F REE T4 T4,free(dire ct) 1.35 NG/dL 0.82-1 .77 Not Available [facility] ([facility]) [address] [place], [address], 01/20/2024 16:36:20 01/17/20 24 01/18/2024 COMP. METAB OLIC PANEL (14) glucose 89 mg/dL 70-99 Not Available [facility] ([facility]) [address] [place], [address], 01/20/2024 16:36:20 01/17/20 24 01/18/2024 COMP. METAB OLIC PANEL (14) BUN 12 mg/dL 6-20 Not Available [facility] ([facility]) [address] [place], [address], 01/20/2024 16:36:20 01/17/20 24 01/18/2024 COMP. METAB OLIC PANEL (14) creatinine 0.93 mg/dL 0.57-1 .00 Not Available [facility] ([facility]) [address] [place], [address], 01/20/2024 16:36:20 01/17/20 24 01/18/2024 COMP. METAB OLIC PANEL (14) eGFR 85 mL/mi n/1.7 3 >59 Not Available [facility] ([facility]) [address] [facility], [place], [address], 01/20/2024 16:36:20 01/17/20 24 01/18/2024 COMP. METAB OLIC PANEL (14) BUN/creatini ne ratio 13 9-23 Not Available [facility] ([facility]) [address] [facility], [place], [address], 01/20/2024 16:36:20 01/17/20 24 01/18/2024 COMP. METAB OLIC PANEL (14) sodium 142 mmol/ L 134-14 4 Not Available [facility] ([facility]) [address] [facility], [place], [address], 01/20/2024 16:36:20 01/17/20 24 01/18/2024 COMP. METAB OLIC PANEL (14) potassium 4.1 mmol/ L 3.5-5. 2 Not Available [facility] ([facility]) [address] [facility], [place], [address], 01/20/2024 16:36:20 01/17/20 24 01/18/2024 COMP. METAB OLIC PANEL (14) chloride 105 mmol/ L 96-106 Not Available [facility] ([facility]) [address] [facility], [place], [address], 01/20/2024 16:36:20 01/17/20 24 01/18/2024 COMP. METAB OLIC PANEL (14) carbon dioxide, total 27 mmol/ L 20-29 Not Available [facility] ([facility]) [address] [facility], [place], [address], 01/20/2024 16:36:20 01/17/20 24 01/18/2024 COMP. METAB OLIC PANEL (14) calcium 9.7 mg/dL 8.7-10 .2 Not Available [facility] ([facility]) [address] [facility], [place], [address], 01/20/2024 16:36:20 01/17/20 24 01/18/2024 COMP. METAB OLIC PANEL (14) protein, total 6.9 g/dL 6.0-8. 5 Not Available [facility] ([facility]) [address], [place], [address], 01/20/2024 16:36:20 01/17/20 24 01/18/2024 COMP. METAB OLIC PANEL (14) albumin 4.7 g/dL 4.0-5. 0 Not Available [facility] ([facility]) [address], [place], [address], 01/20/2024 16:36:20 01/17/20 24 01/18/2024 COMP. METAB OLIC PANEL (14) globulin, total 2.2 g/dL 1.5-4. 5 Not Available [facility] ([facility]) [address] [place] [place], [address], 01/20/2024 16:36:20 01/17/20 24 01/18/2024 COMP. METAB OLIC PANEL (14) bilirubin, total 1.4 mg/dL 0.0-1. 2 above high normal Not Available [facility] ([facility]) [address], [place], [address], 01/20/2024 16:36:20 01/17/20 24 01/18/2024 COMP. METAB OLIC PANEL (14) alkaline phosphatase 71 IU/L 44-121 Not Available [facility] ([facility]) [address], [place], [address], 01/20/2024 16:36:20 01/17/20 24 01/18/2024 COMP. METAB OLIC PANEL (14) AST (SGOT) 19 IU/L 0-40 Not Available [facility] ([facility]) [address] [facility], [place], [address], 01/20/2024 16:36:20 01/17/20 24 01/18/2024 COMP. METAB OLIC PANEL (14) ALT (SGPT) 13 IU/L 0-32 Not Available [facility] ([facility]) [address] [facility], [place], [address], 01/20/2024 16:36:20 01/17/20 24 01/18/2024 UA WITH CULTU RE REFLE X specific gravity 1.020 1.005- 1.030 Not Available [facility] ([facility]) [address] [facility], [place], [address], 01/20/2024 16:36:21 01/17/20 24 01/18/2024 UA WITH CULTU RE REFLE X pH 6.0 5.0-7. 5 Not Available [facility] ([facility]) [address] [facility], [place], [address], 01/20/2024 16:36:21 01/17/20 24 01/18/2024 UA WITH CULTU RE REFLE X urine-color YELLOW yellow Not Available [facility] ([facility]) [address] [facility], [place], [address], 01/20/2024 16:36:21 01/17/20 24 01/18/2024 UA WITH CULTU RE REFLE X appearance CLEAR clear Not Available [facility] ([facility]) [address] [facility], [place], [address], 01/20/2024 16:36:21 01/17/20 24 01/18/2024 UA WITH CULTU RE REFLE X WBC esterase NEGATI VE negati ve Not Available [facility] ([facility]) [address] [place], [address], 01/20/2024 16:36:21 01/17/20 24 01/18/2024 UA WITH CULTU RE REFLE X protein NEGATI VE negati ve/tra ce Not Available [facility] ([facility]) [address] [place], [address], 01/20/2024 16:36:21 01/17/20 24 01/18/2024 UA WITH CULTU RE REFLE X glucose NEGATI VE negati ve Not Available [facility] ([facility]) [address] [facility], [place], [address], 01/20/2024 16:36:21 01/17/20 24 01/18/2024 UA WITH CULTU RE REFLE X ketones NEGATI VE negati ve Not Available [facility] ([facility]) [address] [facility], [place], [address], 01/20/2024 16:36:21 01/17/20 24 01/18/2024 UA WITH CULTU RE REFLE X occult blood NEGATI VE negati ve Not Available [facility] ([facility]) [address] [facility], [place], [address], 01/20/2024 16:36:21 01/17/20 24 01/18/2024 UA WITH CULTU RE REFLE X bilirubin NEGATI VE negati ve Not Available [facility] ([facility]) [address] [facility], [place], [address], 01/20/2024 16:36:21 01/17/20 24 01/18/2024 UA WITH CULTU RE REFLE X urobilinogen ,semi-qn 0.2 mg/dL 0.2-1. 0 Not Available [facility] ([facility]) [address] [facility], [place], [address], 01/20/2024 16:36:21 01/17/20 24 01/18/2024 UA WITH CULTU RE REFLE X nitrite, urine NEGATI VE negati ve Not Available [facility] ([facility]) [address] [facility], [place], [address], 01/20/2024 16:36:21 01/17/20 24 01/18/2024 UA WITH CULTU RE REFLE X microscopic examination COMMEN T Micro scopi c not indic ated and not perfo rmed. Not Available [facility] ([facility]) [address] [facility], [place], [address], 01/20/2024 16:36:21 01/17/20 24 01/18/2024 UA WITH CULTU RE REFLE X urinalysis reflex COMMEN T This speci men will not refle x to a Urine Cultu re. Not Available [facility] ([facility]) [address] [facility], [place], [address], 01/20/2024 16:36:21 01/17/20 24 01/18/2024 VITAM IN B12 AND FOLAT E vitamin B12 606 pg/mL 232-12 45 Not Available [facility] ([facility]) [address] [facility], [place], [address], 01/20/2024 16:36:21 01/17/20 24 01/18/2024 VITAM IN B12 AND FOLAT E folate (folic acid), serum 15.5 NG/mL >3.0 A serum folat e oliva ntrat ion of less than 3.1 ng/mL is consi dered to repre sent clini lukas defic iency . Not Available [facility] ([facility]) [address] [facility], [place], [address], 01/20/2024 16:36:21 01/17/20 24 01/18/2024 HEMOG LOBIN A1C hemoglobin A1C 5.2 % 4.8-5. 6 Predi abete s: 5.7 - 6.4 Diabe jaime: >6.4 Glyce beatriz contr ol for adult s with diabe jaime: <7.0 Not Available [facility] ([facility]) [address] [place], [address], 01/20/2024 16:36:22 01/17/20 24 01/18/2024 CBC WITH DIFFE RENTI AL/PL ATELE T WBC 5.0 x10e3 /uL 3.4-10 .8 Not Available [facility] ([facility]) [address] [facility], [place], [address], 01/20/2024 16:36:22 01/17/20 24 01/18/2024 CBC WITH DIFFE RENTI AL/PL ATELE T RBC 4.74 x10e6 /uL 3.77-5 .28 Not Available [facility] ([facility]) [address] [facility], [place], [address], 01/20/2024 16:36:22 01/17/20 24 01/18/2024 CBC WITH DIFFE RENTI AL/PL ATELE T hemoglobin 13.2 g/dL 11.1-1 5.9 Not Available [facility] ([facility]) [address] [facility], [place], [address], 01/20/2024 16:36:22 01/17/20 24 01/18/2024 CBC WITH DIFFE RENTI AL/PL ATELE T hematocrit 39.1 % 34.0-4 6.6 Not Available [facility] ([facility]) [address] [facility], [place], [address], 01/20/2024 16:36:22 01/17/20 24 01/18/2024 CBC WITH DIFFE RENTI AL/PL ATELE T MCV 83 fL 79-97 Not Available [facility] ([facility]) [address] [place], [address], 01/20/2024 16:36:22 01/17/20 24 01/18/2024 CBC WITH DIFFE RENTI AL/PL ATELE T MCH 27.8 pg 26.6-3 3.0 Not Available [facility] ([facility]) [address] [facility], [place], [address], 01/20/2024 16:36:22 01/17/20 24 01/18/2024 CBC WITH DIFFE RENTI AL/PL ATELE T MCHC 33.8 g/dL 31.5-3 5.7 Not Available [facility] ([facility]) [address] [facility], [place], [address], 01/20/2024 16:36:22 01/17/20 24 01/18/2024 CBC WITH DIFFE RENTI AL/PL ATELE T RDW 13.9 % 11.7-1 5.4 Not Available [facility] ([facility]) [address] [facility], [place], [address], 01/20/2024 16:36:22 01/17/20 24 01/18/2024 CBC WITH DIFFE RENTI AL/PL ATELE T platelets 231 x10e3 /uL 150-45 0 Not Available [facility] ([facility]) [address] [facility], [place], [address], 01/20/2024 16:36:22 01/17/20 24 01/18/2024 CBC WITH DIFFE RENTI AL/PL ATELE T neutrophils 34 % notest ab. Not Available [facility] ([facility]) [address] [facility], [place], [address], 01/20/2024 16:36:22 01/17/20 24 01/18/2024 CBC WITH DIFFE RENTI AL/PL ATELE T lymphs 47 % notest ab. Not Available [facility] ([facility]) [address] [place], [address], 01/20/2024 16:36:22 01/17/20 24 01/18/2024 CBC WITH DIFFE RENTI AL/PL ATELE T monocytes 6 % notest ab. Not Available [facility] ([facility]) [address] [place], [address], 01/20/2024 16:36:22 01/17/20 24 01/18/2024 CBC WITH DIFFE RENTI AL/PL ATELE T eos 12 % notest ab. Not Available [facility] ([facility]) [address] [place], [address], 01/20/2024 16:36:22 01/17/20 24 01/18/2024 CBC WITH DIFFE RENTI AL/PL ATELE T basos 1 % notest ab. Not Available [facility] ([facility]) [address] [facility], [place], [address], 01/20/2024 16:36:22 01/17/20 24 01/18/2024 CBC WITH DIFFE RENTI AL/PL ATELE T neutrophils (absolute) 1.7 x10e3 /uL 1.4-7. 0 Not Available [facility] ([facility]) [address] [facility], [place], [address], 01/20/2024 16:36:22 01/17/20 24 01/18/2024 CBC WITH DIFFE RENTI AL/PL ATELE T lymphs (absolute) 2.4 x10e3 /uL 0.7-3. 1 Not Available [facility] ([facility]) [address] [facility], [place], [address], 01/20/2024 16:36:22 01/17/20 24 01/18/2024 CBC WITH DIFFE RENTI AL/PL ATELE T monocytes(ab solute) 0.3 x10e3 /uL 0.1-0. 9 Not Available [facility] ([facility]) [address] [place], [address], 01/20/2024 16:36:22 01/17/20 24 01/18/2024 CBC WITH DIFFE RENTI AL/PL ATELE T eos (absolute) 0.6 x10e3 /uL 0.0-0. 4 above high normal Not Available [facility] ([facility]) [address] [place], [address], 01/20/2024 16:36:22 01/17/20 24 01/18/2024 CBC WITH DIFFE RENTI AL/PL ATELE T baso (absolute) 0.0 x10e3 /uL 0.0-0. 2 Not Available [facility] ([facility]) [address] [place], [address], 01/20/2024 16:36:22 01/17/20 24 01/18/2024 CBC WITH DIFFE RENTI AL/PL ATELE T immature granulocytes 0 % notest ab. Not Available [facility] ([facility]) [address] [facility], [place], [address], 01/20/2024 16:36:22 01/17/20 24 01/18/2024 CBC WITH DIFFE RENTI AL/PL ATELE T immature grans (abs) 0.0 x10e3 /uL 0.0-0. 1 Not Available [facility] ([facility]) [address] [facility], [place], [address], 01/20/2024 16:36:22 01/17/20 24 01/18/2024 THYRO ID ANTIB ODIES thyroid peroxidase (tpo) Ab <9 IU/mL 0-34 Not Available [facility] ([facility]) [address] [place], [address], 01/20/2024 16:36:23 01/17/20 24 01/20/2024 THYRO ID ANTIB ODIES thyroglobuli n antibody <1.0 IU/mL 0.0-0. 9 Thyro globu aren Antib faviola measu red by Leila Monsont er Metho dolog y It shoul d be noted that the prese nce of thyro globu aren antib odies may not be patho genic nor diagn ostic , espec ially at very low level s. The assay travis actur er has found that four perce nt of indiv idual s witho ut evide nce of thyro id disea se or autoi mmuni ty will have posit voldoymyr TgAb level s up to 4 IU/mL . Not Available [facility] ([facility]) [address] [facility], [place], [address], 01/20/2024 16:36:23 01/17/20 24 01/18/2024 TRIIO DOTHY PETTY E (T3), FREE triiodothyro nine (T3), free 2.9 pg/mL 2.0-4. 4 Not Available [facility] ([facility]) [address] [facility], [place], [address], 01/20/2024 16:36:23 09/22/19 25 09/21/2024 Hered itary breas t and gynec ologi c cance r multi gene roddy sis in Blood or Tissu e by [employer] metho d report summary NEGATI VE Negat volodymyr for 81 out of 81 genes . No known patho genic or likel y patho genic varia nts were detec kimberly in the 81 genes roddy zed. Tyrer -Cuzi ck breas t cance r risk asses sment : 25.7% . Not Available Not Available 01/15/2025 04:20:11 09/22/1909/21/2024 Hered itary breas t and gynec ologi c cance r multi gene roddy sis in Blood or Tissu e by [employer] metho d footnotes See Notes CLIA: ID #[id number] 2 Test perfo rmed by [employer]. [address] [place] [id number] Gi Merino, Ph.D. , [facility] , Labor atory Dire tor Not Available Not Available 01/15/2025 04:20:11 01/21/2001/21/2025 LIPID PANEL W/ CHOL/ HDL RATIO cholesterol, total 184 mg/dL 100-19 9 Not Available [facility] ([facility]) [address] [facility], [place], [address], 01/21/2025 07:07:43 01/21/2001/21/2025 LIPID PANEL W/ CHOL/ HDL RATIO triglyceride s 51 mg/dL 0-149 Not Available [facility] ([facility]) [address] [facility], [place], [address], 01/21/2025 07:07:43 01/21/20 25 01/21/2025 LIPID PANEL W/ CHOL/ HDL RATIO HDL cholesterol 76 mg/dL >39 Not Available [facility] ([facility]) [address] [place], [address], 01/21/2025 07:07:43 01/21/20 25 01/21/2025 LIPID PANEL W/ CHOL/ HDL RATIO VLDL cholesterol lukas 10 mg/dL 5-40 Not Available [facility] ([facility]) [address] [place], [address], 01/21/2025 07:07:43 01/21/20 25 01/21/2025 LIPID PANEL W/ CHOL/ HDL RATIO LDL chol calc ([facility]) 98 mg/dL 0-99 Not Available [facility] ([facility]) [address] [facility], [place], [address], 01/21/2025 07:07:43 01/21/20 25 01/21/2025 LIPID PANEL W/ CHOL/ HDL RATIO T. chol/HDL ratio 2.4 ratio 0.0-4. 4 T. Chol/ HDL Ratio Men Women 1/2 Avg.R isk 3.4 3.3 Avg.R isk 5.0 4.4 2X Avg.R isk 9.6 7.1 3X Avg.R isk 23.4 11.0 Not Available [facility] ([facility]) [address] [place], [address], 01/21/2025 07:07:43 01/21/20 25 01/21/2025 TSH+F REE T4 TSH 1.610 uIU/m L 0.450- 4.500 Not Available [facility] ([facility]) [address] [place], [address], 01/21/2025 07:07:44 01/21/20 25 01/21/2025 TSH+F REE T4 T4,free(dire ct) 1.30 NG/dL 0.82-1 .77 Not Available [facility] ([facility]) [address] [facility], [place], [address], 01/21/2025 07:07:44 01/21/20 25 01/21/2025 COMP. METAB OLIC PANEL (14) glucose 98 mg/dL 70-99 Not Available [facility] ([facility]) [address] [facility] [place], [address], 01/21/2025 07:07:44 01/21/20 25 01/21/2025 COMP. METAB OLIC PANEL (14) BUN 10 mg/dL 6-20 Not Available [facility] ([facility]) [address] [facility] [place], [address], 01/21/2025 07:07:44 01/21/20 25 01/21/2025 COMP. METAB OLIC PANEL (14) creatinine 0.89 mg/dL 0.57-1 .00 Not Available [facility] ([facility]) [address] [facility], [place], [address], 01/21/2025 07:07:44 01/21/20 25 01/21/2025 COMP. METAB OLIC PANEL (14) eGFR 89 mL/mi n/1.7 3 >59 Not Available [facility] ([facility]) [address] [facility] [place], [address], 01/21/2025 07:07:44 01/21/20 25 01/21/2025 COMP. METAB OLIC PANEL (14) BUN/creatini ne ratio 11 9-23 Not Available [facility] ([facility]) [address] [facility] [place], [address], 01/21/2025 07:07:44 01/21/20 25 01/21/2025 COMP. METAB OLIC PANEL (14) sodium 141 mmol/ L 134-14 4 Not Available [facility] ([facility]) [address] [facility] [place], [address], 01/21/2025 07:07:44 01/21/20 25 01/21/2025 COMP. METAB OLIC PANEL (14) potassium 4.4 mmol/ L 3.5-5. 2 Not Available [facility] ([facility]) [address] [facility] [place], [address], 01/21/2025 07:07:44 01/21/20 25 01/21/2025 COMP. METAB OLIC PANEL (14) chloride 103 mmol/ L 96-106 Not Available [facility] ([facility]) [address] [facility], [place], [address], 01/21/2025 07:07:44 01/21/20 25 01/21/2025 COMP. METAB OLIC PANEL (14) carbon dioxide, total 23 mmol/ L 20-29 Not Available [facility] ([facility]) [address] [facility], [place], [address], 01/21/2025 07:07:44 01/21/20 25 01/21/2025 COMP. METAB OLIC PANEL (14) calcium 9.8 mg/dL 8.7-10 .2 Not Available [facility] ([facility]) [address] [facility], [place], [address], 01/21/2025 07:07:44 01/21/20 25 01/21/2025 COMP. METAB OLIC PANEL (14) protein, total 7.3 g/dL 6.0-8. 5 Not Available [facility] ([facility]) [address] [facility] [place], [address], 01/21/2025 07:07:44 01/21/20 25 01/21/2025 COMP. METAB OLIC PANEL (14) albumin 4.8 g/dL 4.0-5. 0 Not Available [facility] ([facility]) [address] [facility], [place], [address], 01/21/2025 07:07:44 01/21/20 25 01/21/2025 COMP. METAB OLIC PANEL (14) globulin, total 2.5 g/dL 1.5-4. 5 Not Available [facility] ([facility]) [address] [facility] [place], [address], 01/21/2025 07:07:44 01/21/20 25 01/21/2025 COMP. METAB OLIC PANEL (14) bilirubin, total 1.0 mg/dL 0.0-1. 2 Not Available [facility] ([facility]) [address] [facility] [place], [address], 01/21/2025 07:07:44 01/21/20 25 01/21/2025 COMP. METAB OLIC PANEL (14) alkaline phosphatase 83 IU/L 44-121 Not Available [facility] ([facility]) [address] [facility], [place], [address], 01/21/2025 07:07:44 01/21/20 25 01/21/2025 COMP. METAB OLIC PANEL (14) AST (SGOT) 39 IU/L 0-40 Not Available [facility] ([facility]) [address] [facility] [place], [address], 01/21/2025 07:07:44 01/21/20 25 01/21/2025 COMP. METAB OLIC PANEL (14) ALT (SGPT) 29 IU/L 0-32 Not Available [facility] ([facility]) [address] [facility] [place], [address], 01/21/2025 07:07:44 01/21/20 25 01/21/2025 MICRO SCOPI C EXAMI NATIO N WBC None seen /hpf 0-5 Not Available [facility] ([facility]) [address] [facility] [place], [address], 01/21/2025 07:07:45 01/21/20 25 01/21/2025 MICRO SCOPI C EXAMI NATIO N RBC 0-2 /hpf 0-2 Not Available [facility] ([facility]) [address], [place], [address], 01/21/2025 07:07:45 01/21/20 25 01/21/2025 MICRO SCOPI C EXAMI NATIO N epithelial cells (non renal) None seen /hpf 0-10 Not Available [facility] ([facility]) [address] [facility], [place], [address], 01/21/2025 07:07:45 01/21/20 25 01/21/2025 MICRO SCOPI C EXAMI NATIO N casts None seen /lpf nonese en Not Available [facility] ([facility]) [address] [facility], [place], [address], 01/21/2025 07:07:45 01/21/20 25 01/21/2025 MICRO SCOPI C EXAMI NATIO N bacteria None seen nonese en/few Not Available [facility] ([facility]) [address] [facility], [place], [address], 01/21/2025 07:07:45 01/21/20 25 01/21/2025 VITAM IN B12+F OLATE vitamin B12 536 pg/mL 232-12 45 Not Available [facility] ([facility]) [address] [facility], [place], [address], 01/21/2025 07:07:46 01/21/20 25 01/21/2025 VITAM IN B12+F OLATE folate (folic acid), serum 7.5 NG/mL >3.0 A serum folat e oliva ntrat ion of less than 3.1 ng/mL is consi dered to repre sent clini lukas defic iency . Not Available [facility] ([facility]) [address] [facility], [place], [address], 01/21/2025 07:07:46 01/21/20 25 01/21/2025 UA/M W/RFL X CULTU RE, ROUTI NE specific gravity 1.007 1.005- 1.030 Not Available [facility] ([facility]) [address] [facility], [place], [address], 01/21/2025 07:07:46 01/21/20 25 01/21/2025 UA/M W/RFL X CULTU RE, ROUTI NE pH 7.0 5.0-7. 5 Not Available [facility] ([facility]) [address] [facility], [place], [address], 01/21/2025 07:07:46 01/21/20 25 01/21/2025 UA/M W/RFL X CULTU RE, ROUTI NE urine-color YELLOW yellow Not Available [facility] ([facility]) [address] [facility], [place], [address], 01/21/2025 07:07:46 01/21/20 25 01/21/2025 UA/M W/RFL X CULTU RE, ROUTI NE appearance CLEAR clear Not Available [facility] ([facility]) [address] [facility], [place], [address], 01/21/2025 07:07:46 01/21/20 25 01/21/2025 UA/M W/RFL X CULTU RE, ROUTI NE WBC esterase NEGATI VE negati ve Not Available [facility] ([facility]) [address] [place], [address], 01/21/2025 07:07:46 01/21/20 25 01/21/2025 UA/M W/RFL X CULTU RE, ROUTI NE protein NEGATI VE negati ve/tra ce Not Available [facility] ([facility]) [address] [place], [address], 01/21/2025 07:07:46 01/21/20 25 01/21/2025 UA/M W/RFL X CULTU RE, ROUTI NE glucose NEGATI VE negati ve Not Available [facility] ([facility]) [address] [place], [address], 01/21/2025 07:07:46 01/21/20 25 01/21/2025 UA/M W/RFL X CULTU RE, ROUTI NE ketones NEGATI VE negati ve Not Available [facility] ([facility]) [address] [facility], [place], [address], 01/21/2025 07:07:46 01/21/20 25 01/21/2025 UA/M W/RFL X CULTU RE, ROUTI NE occult blood 1+ negati ve abnormal Not Available [facility] ([facility]) [address] [place], [address], 01/21/2025 07:07:46 01/21/20 25 01/21/2025 UA/M W/RFL X CULTU RE, ROUTI NE bilirubin NEGATI VE negati ve Not Available [facility] ([facility]) [address] [facility], [place], [address], 01/21/2025 07:07:46 01/21/20 25 01/21/2025 UA/M W/RFL X CULTU RE, ROUTI NE urobilinogen ,semi-qn 0.2 mg/dL 0.2-1. 0 Not Available [facility] ([facility]) [address] [place], [address], 01/21/2025 07:07:46 01/21/20 25 01/21/2025 UA/M W/RFL X CULTU RE, ROUTI NE nitrite, urine NEGATI VE negati ve Not Available [facility] ([facility]) [address] [place], [address], 01/21/2025 07:07:46 01/21/20 25 01/21/2025 UA/M W/RFL X CULTU RE, ROUTI NE microscopic examination SEE BELOW: Micro scopi c was indic ated and was perfo rmed. Not Available [facility] ([facility]) [address] [facility] [place], [address], 01/21/2025 07:07:46 01/21/20 25 01/21/2025 UA/M W/RFL X CULTU RE, ROUTI NE urinalysis reflex COMMEN T This speci men will not refle x to a Urine Cultu re. Not Available [facility] ([facility]) [address] [facility], [place], [address], 01/21/2025 07:07:46 01/21/20 25 01/21/2025 HEMOG LOBIN A1C hemoglobin A1C 5.0 % 4.8-5. 6 Predi abete s: 5.7 - 6.4 Diabe jaime: >6.4 Glyce beatriz contr ol for adult s with diabe jaime: <7.0 Not Available [facility] ([facility]) [address] [facility], [place], [address], 01/21/2025 07:07:47 01/21/20 25 01/20/2025 CBC WITH DIFFE RENTI AL/PL ATELE T WBC 5.6 x10e3 /uL 3.4-10 .8 Not Available [facility] ([facility]) [address] [facility], [place], [address], 01/21/2025 07:07:48 01/21/20 25 01/20/2025 CBC WITH DIFFE RENTI AL/PL ATELE T RBC 5.02 x10e6 /uL 3.77-5 .28 Not Available [facility] ([facility]) [address] [facility], [place], [address], 01/21/2025 07:07:48 01/21/20 25 01/20/2025 CBC WITH DIFFE RENTI AL/PL ATELE T hemoglobin 13.9 g/dL 11.1-1 5.9 Not Available [facility] ([facility]) [address] [facility], [place], [address], 01/21/2025 07:07:48 01/21/20 25 01/20/2025 CBC WITH DIFFE RENTI AL/PL ATELE T hematocrit 42.6 % 34.0-4 6.6 Not Available [facility] ([facility]) [address] [facility], [place], [address], 01/21/2025 07:07:48 01/21/20 25 01/20/2025 CBC WITH DIFFE RENTI AL/PL ATELE T MCV 85 fL 79-97 Not Available [facility] ([facility]) [address] [facility], [place], [address], 01/21/2025 07:07:48 01/21/20 25 01/20/2025 CBC WITH DIFFE RENTI AL/PL ATELE T MCH 27.7 pg 26.6-3 3.0 Not Available [facility] ([facility]) [address] [facility], [place], [address], 01/21/2025 07:07:48 01/21/20 25 01/20/2025 CBC WITH DIFFE RENTI AL/PL ATELE T MCHC 32.6 g/dL 31.5-3 5.7 Not Available [facility] ([facility]) [address] [facility], [place], [address], 01/21/2025 07:07:48 01/21/20 25 01/20/2025 CBC WITH DIFFE RENTI AL/PL ATELE T RDW 13.8 % 11.7-1 5.4 Not Available [facility] ([facility]) [address] [facility], [place], [address], 01/21/2025 07:07:48 01/21/20 25 01/20/2025 CBC WITH DIFFE RENTI AL/PL ATELE T platelets 237 x10e3 /uL 150-45 0 Not Available [facility] ([facility]) [address] [facility], [place], [address], 01/21/2025 07:07:48 01/21/20 25 01/20/2025 CBC WITH DIFFE RENTI AL/PL ATELE T neutrophils 54 % notest ab. Not Available [facility] ([facility]) [address] [facility], [place], [address], 01/21/2025 07:07:48 01/21/20 25 01/20/2025 CBC WITH DIFFE RENTI AL/PL ATELE T lymphs 35 % notest ab. Not Available [facility] ([facility]) [address] [facility], [place], [address], 01/21/2025 07:07:48 01/21/20 25 01/20/2025 CBC WITH DIFFE RENTI AL/PL ATELE T monocytes 5 % notest ab. Not Available [facility] ([facility]) [address] [facility], [place], [address], 01/21/2025 07:07:48 01/21/20 25 01/20/2025 CBC WITH DIFFE RENTI AL/PL ATELE T eos 5 % notest ab. Not Available [facility] ([facility]) [address] [facility], [place], [address], 01/21/2025 07:07:48 01/21/20 25 01/20/2025 CBC WITH DIFFE RENTI AL/PL ATELE T basos 1 % notest ab. Not Available [facility] ([facility]) [address] [facility], [place], [address], 01/21/2025 07:07:48 01/21/20 25 01/20/2025 CBC WITH DIFFE RENTI AL/PL ATELE T neutrophils (absolute) 3.1 x10e3 /uL 1.4-7. 0 Not Available [facility] ([facility]) [address] [facility], [place], [address], 01/21/2025 07:07:48 01/21/20 25 01/20/2025 CBC WITH DIFFE RENTI AL/PL ATELE T lymphs (absolute) 1.9 x10e3 /uL 0.7-3. 1 Not Available [facility] ([facility]) [address] [facility], [place], [address], 01/21/2025 07:07:48 01/21/20 25 01/20/2025 CBC WITH DIFFE RENTI AL/PL ATELE T monocytes(ab solute) 0.3 x10e3 /uL 0.1-0. 9 Not Available [facility] ([facility]) [address] [facility], [place], [address], 01/21/2025 07:07:48 01/21/20 25 01/20/2025 CBC WITH DIFFE RENTI AL/PL ATELE T eos (absolute) 0.3 x10e3 /uL 0.0-0. 4 Not Available [facility] ([facility]) [address] [facility], [place], [address], 01/21/2025 07:07:48 01/21/20 25 01/20/2025 CBC WITH DIFFE RENTI AL/PL ATELE T baso (absolute) 0.0 x10e3 /uL 0.0-0. 2 Not Available [facility] ([facility]) [address] [facility], [place], [address], 01/21/2025 07:07:48 01/21/20 25 01/20/2025 CBC WITH DIFFE RENTI AL/PL ATELE T immature granulocytes 0 % notest ab. Not Available [facility] ([facility]) [address] [facility], [place], [address], 01/21/2025 07:07:48 01/21/20 25 01/20/2025 CBC WITH DIFFE RENTI AL/PL ATELE T immature grans (abs) 0.0 x10e3 /uL 0.0-0. 1 Not Available [facility] ([facility]) [address] [facility], [place], [address], 01/21/2025 07:07:48 01/21/20 25 01/21/2025 TRIIO DOTHY PETTY E (T3), FREE triiodothyro nine (T3), free 3.2 pg/mL 2.0-4. 4 Not Available [facility] ([facility]) [address] [facility], [place], [address], 01/21/2025 07:07:49 02/11/20 24 02/10/2024 US, gallb ladde r No observ ation record ed. [facility] [address], [place], [address], 02/11/2024 14:05:54 02/14/20 24 02/14/2024 NM, hepat obili jeison scan, w/ CCK No observ ation record ed. [place] [address], [place], [address], 02/14/2024 19:17:53 02/21/20 24 02/20/2024 CT, abdom en + pelvi s, w/ contr ast No observ ation record ed. [address], [place], [address], 03/04/2024 17:59:20 02/27/20 25 02/19/2025 US, thyro id No observ ation record ed. [facility] [address], [place], [address], 03/01/2025 15:43:22 Result Notes None recorded. Problems Name Problem SNOMED Code Status Onset Date Resolution Date Notes Provider Name and Address Organization Details Recorded Time Ankylosing spondylitis 8304919 Active 2023 MADHAVI Petty Attn: Deirdre ballesteros,[address], [place], [address], [facility] 10:40:07 Asthma 466997505 Active 2023 MADHAVI Petty Attn: Deirdre ballesteros,[address], [place], [address], [facility] 4 10:40:12 Body mass index 20-24 - normal 826580636 Active 2023 MADHAVI Petty Attn: Deirdre ballesteros,[address], [place], [address], [facility] 4 10:40:23 Long-term drug therapy Active 2023 MADHAVI Petty Attn: Deirdre ballesteros,[address], [place], [address], [facility] 4 11:39:28 Positive screening for depression on PHQ-9 (Patient Health Questionnai re 9) [id number] 00 Active 2023 MADHAVI Petty Attn: Deirdre ballesteros,[address], [place], [address], [facility] 4 11:40:47 Attention deficit hyperactivi ty disorder 231468408 Active 2023 MADHAVI Petty Attn: Deirdre ballesteros,[address], [place], [address], [facility] 4 11:41:03 Generalized anxiety disorder 91975972 Active 2023 MADHAVI Petty Attn: Deirdre ballesteros,[address], [place], [address], [facility] 4 11:41:23 Normal weight 91854169 Active 2024 MADHAVI Petty Attn: Deirdre ballesteros,[address] [facility], [place], [address], [facility] 5 13:03:57 Problem Notes None recorded. Procedures Surgical History Date Name Laterality Status Provider Name and Address Organization Details Recorded Time Tonsillectomy completed Troy Gentile MA [facility] 01/02/2024 10:28:39 Imaging Results None recorded. Procedure Notes None recorded. Medical Equipment None Reported. Allergies No known drug allergies Medications Name Sig Start Date Stop Date Status Note LastModified by Organization Details LastModified Time buspirone 5 mg tablet TAKE 1 TABLET BY MOUTH TWICE A DAY active Not Available Not Available No t Available prednison e 10 mg tablet PLEASE SEE ATTACHED FOR DETAILED DIRECTIO NS 01/01 completed Not Available Not Available Not Available loperamid e 2 mg capsule TAKE 1 CAPSULE BY MOUTH TWICE A DAY 01/15 completed Not Available Not Available Not Available fluconazo le 150 mg tablet TAKE 1 TABLET BY MOUTH NOW THEN REPEAT IN 3 DAYS 01/01 completed Not Available Not Available Not Available meloxicam 15 mg tablet TAKE 1 TABLET (15 MG TOTAL) BY MOUTH DAILY FOR 7 DAYS TAKE 1 DAILY WITH FOOD 01/01 completed Not Available Not Available Not Available ondansetr on HCl 4 mg tablet TAKE 1 TABLET BY MOUTH 3 TIMES A DAY. 01/15 completed Not Available Not Available Not Available tramadol 50 mg tablet TAKE 1 TABLET BY MOUTH EVERY 6 HOURS. 01/01 completed Not Available Not Available Not Available methocarb kate 750 mg tablet TAKE 1 TABLET BY MOUTH 3 TIMES A DAY NEEDED 01/01 completed Not Available Not Available Not Available dextroamp hetamine- amphetami ne ER 20 mg 24hr capsule,e xtend release TAKE 2 CAPSULES BY MOUTH EVERY MORNING 01/15 completed Not Available Not Available Not Available pantopraz ole 40 mg tablet,de layed release TAKE 1 TABLET BY MOUTH EVERY DAY 01/15 completed Not Available Not Available Not Available omeprazol e 20 mg capsule,d elayed release 20 MG ORALLY DAILY FOR 14 DAYS 01/15 completed Not Available Not Available Not Available diclofena c sodium 75 mg tablet,de layed release TAKE 1 TABLET BY MOUTH TWICE A DAY 01/15 completed Not Available Not Available Not Available norgestim ate-ethin yl estradiol 0.18mg/0. 215mg/0.2 5mg-0.035 mg(28)tab let TAKE 1 TABLET BY MOUTH EVERY DAY 01/01 completed Not Available Not Available Not Available hydroxyzi ne HCl 25 mg tablet TAKE 1/2 TO 1 TABLET BY MOUTH ONCE A DAY NEEDED FOR ANXIETY 01/15 completed pt states that she took this but she noticed and increase in her heart rate Not Available Not Available Not Available methylpre dnisolone 4 mg tablets in a dose pack TAKE 6 TABLETS ON DAY 1 DIRECTED ON PACKAGE AND DECREASE BY 1 TAB EACH DAY FOR A TOTAL OF 6 DAYS 01/01 completed Not Available Not Available Not Available albuterol sulfate HFA 90 mcg/actua tion aerosol inhaler INHALE 2 PUFFS EVERY 4 HOURS BY INHALATI ON ROUTE NEEDED 2024 active Not Available Not Available Not Avai lable ondansetr on 4 mg disintegr ating tablet 4 MG ORALLY EVERY 8 HOURS NEEDED FOR NAUSEA AND VOMITING 01/15 completed Not Available Not Available Not Available amoxicill in 875 mg-potass ium clavulana te 125 mg tablet TAKE 1 TABLET BY MOUTH EVERY 12 HOURS 01/01 completed Not Available Not Available Not Available dextroamp hetamine- amphetami ne ER 25 mg 24hr capsule,e xtend release Take 1 capsule every day by oral route for 30 days. active Not Available Not Available No t Available escitalop bailee 10 mg tablet TAKE 1 & 1/2 TABLETS BY MOUTH ONCE A DAY active Not Available Not Available No t Available escitalop bailee 20 mg tablet TAKE 1 TABLET BY MOUTH EVERY DAY 01/01 completed Not Available Not Available Not Available Vyvanse 30 mg capsule TAKE 1 CAPSULE BY MOUTH EVERY DAY IN THE MORNING 01/01 completed Not Available Not Available Not Available budesonid e-formote rol HFA 160 mcg-4.5 mcg/actua tion aerosol inhaler INHALE 2 PUFFS BY MOUTH TWICE A DAY active Not Available Not Available No t Available GaviLyte- G 236 gram-22.7 4 gram-6.74 gram-5.86 gram oral solution TAKE 4,000 ML BY MOUTH ONCE FOR 1 DOSE. 01/15 completed Not Available Not Available Not Available Xhance 93 mcg/actua tion breath activated aerosol 01/01 completed Not Available Not Available Not Available Humira(CF ) 40 mg/0.4 mL subcutane ous syringe kit 01/15 completed Not Available Not Available Not Available albuterol 90 mcg-budes onide 80 mcg/actua tion HFA aerosol inhaler Inhale by inhalati on route. 09/09 completed Not Available Not Available Not Available Vitals Date Recorded Systolic And Diastolic Provider Name and Address Organization Details Last Updated DateTime 01/02/2024 120/80 mm[Hg] MADHAVI Petty Attn: Accounting,[address] [place], [address] 01/02/2024 10:51:10 Date Recorded Body height Body mass index (BMI) Body weight Respiratory rate Oxygen saturation Oxygen saturation in Arterial blood by Pulse oximetry Heart rate Systolic And Diastolic Provider Name and Address Organization Details Last Updated DateTime 4 165.1 cm 24.8 kg/m2 24279.4 1 g 20 /min 99 % 99 % 100 /min 126/88 mm[Hg] Troy Gentile MA [facility] 4 10:25:33 Date Recorded Respiratory rate Systolic And Diastolic Provider Name and Address Organization Details Last Updated DateTime 01/15/2025 16 /min 110/80 mm[Hg] MADHAVI Petty Attn: Accounting, [place], [address], [facility] 01/15/2025 14:34:38 Date Recorded Body height Body mass index (BMI) Body weight Oxygen saturation Oxygen saturation in Arterial blood by Pulse oximetry Heart rate Systolic And Diastolic Provider Name and Address Organization Details Last Updated DateTime 5 165.1 cm 24 kg/m2 15935.3 g 99 % 99 % 126 /min 124/82 mm[Hg] Troy Gentile MA [facility] 5 14:15:25 Social History Question Answer Notes LastModified by Organizat ion Details LastModified Time Tobacco Smoking Status Never Smoker Troy Gentile MA null, [facility] 01/02/2024 10:22:32 Are You Blind Or Do You Have Difficulty Seeing? Yes Glasses Information n ot available 01/02/2024 What Is Your Level Of Caffeine Consumption? Heavy Information not available 01/02/2024 In The 14 Days Before Symptom Onset, Have You Had Close Contact With A Laboratory-confirm ed COVID-19 While That Case Was Ill? No Information n ot available 01/02/2024 In The 14 Days Before Symptom Onset, Have You Had Close Contact With A Person Who Is Under Investigation For COVID-19 While That Person Was Ill? No Information not available 01/02/2024 Have You Been To An Area Known To Be High Risk For COVID-19? No Information not available 01/02/2024 Are You Deaf Or Do You Have Serious Difficulty Hearing? No Information not available 01/02/2024 What Type Of Diet Are You Following? REGULAR Information n ot available 01/02/2024 Are There Any Guns Present In Your Home? No Information not available 01/02/2024 What Was The Date Of Your Most Recent Tobacco Screening? 01/15/2025 Information not available 01/15/2025 Do You Use Your Seat Belt Or Car Seat Routinely? Yes Information not available 01/02/2024 Do You Have Smoke And Carbon Monoxide Detectors In Your Home? Yes Information not available 01/02/2024 Do You Use Sunscreen Routinely? No Information not available 01/02/2024 Has Tobacco Cessation Counseling Been Provided? Yes Information not available 01/02/2024 On What Date Was Tobacco Cessation Counseling Provided? 01/15/2025 Information not available 01/15/2025 Sex: Female Functional Status Question Answer Note LastModified by [employer] ion Details LastModified Time Do you use any illicit or recreational drugs? Yes [email or web address] Information not available 01/02/2024 Do you or have you ever used any other forms of tobacco or nicotine? Yes Information not available 01/02/2024 What is your level of alcohol consumption? None Information not available 01/02/2024 Do you or have you ever used smokeless tobacco? Never used smokeless tobacco Information not available 01/02/2024 Are you able to care for yourself independently? Yes Information not available 01/02/2024 Do you or have you ever used e-cigarettes or vape? Current user of electronic cigarettes Information not available 01/02/2024 What is your exercise level? Occasional few x a week Information not available 01/02/2024 Mental Status None recorded. Family History Relationship Description Onset Age of this Age Resolved Age Notes LastModified by Organization Details LastModified Time Mother Diabetes mellitus [email or web address] Not available 2023 10:21:48 Mother Blood coagulation disorder [email or web address] Not available 2023 10:29:07 Mother Diabetes mellitus [email or web address] Not available 2023 10:29:13 Mother Hypertensive disorder tcarterma Not available 2023 10:29:28 Brother Harmful pattern of use of alcohol tcarterma Not available 2023 10:28:48 Brother Attention deficit hyperactivit y disorder tcarterma Not available 01/01 10:28:53 Brother Malignant neoplasm of prostate tcarterma Not available 2023 10:30:17 Medical History Condition Response Anxiety Disorder Y Muscle, Joint, or Bone Problems Y Anemia Y GI Problems Y Asthma Y Allergies Y Gynecological History Statement/Question Response Flow Heavy Date of LMP 12/24/2024 Menses Monthly Y Duration of Flow (days) 3 Current Control Method None Age at First Child 0 LMP Approximate Obstetrics History GPAL:G 0 P 0 0 0 0 Past Encounters Encounter ID Performer Location Encounter Start Date Encounter Closed Date Diagnosis/Indication Diagnosis SNOMED-CT Code Diagnosis ICD10 Code Diagnosis IMO Codes Diagnosis Note [id number] Juventino Deluna MD [facility] [place] [address] [place] [address] 01/02/2024 10:01:12 01/02/2024 10:53:51 Body mass index 20-24 - normal 679884934 Z68.24 BMI is in normal range with healthy diet and exercise ongoing. Adult [facility] examination 477114054 Z00.01 Annual wellness exam completed. Cholesterol screening 27 6844359 Z13.220 Fasting lipid panel is due Diabetes m ellitus screening 103464891 Z13.1 Annual A1c screening is due Thyroid di sorder screening 719424988 Z13.29 Routine thyroid function testing is due Ankylosing spondylitis 6742873 M45.9 On Humira since end of May, every two weeks, seeing Dr. Mattson at [facility]. Asthma 849936248 J45.90 9 using 1 albuterol hfa per month. Discussion with patient is had that she is going through albuterol to quickly. She needs a daily maintenanc e steroid inhaler on board. Symbicort high dose has been sent to the pharmacy for her to start. Long-term drug therapy 932459747 Z79.899 Annual labs ordered, fasting status. Positive s creening for depression on PHQ-9 (Patient Health Questionnaire 9) 7309453915 01792 Z13.31 Screening is positive with a score of 7. She is on anxiety medicine and also ADHD medication and is stable with no additional requests or needs. Attention deficit hyperactivity disorder 413815653 F90.9 Underlying history noted with Adderall ER 20 mg daily on board with specialist . Generalize d anxiety disorder 00563000 F41.1 Patient is currently stable on BuSpar 5 mg twice a day and Lexapro 10 mg daily. [id number] MADHAVI Petty [facility] [place] [address] [place] [address] 01/15/2025 14:02:34 01/18/2025 15:35:39 Normal weight 52988564 Z68.24 0903836665 BMI is normal Adult heal th examination 297250219 Z00.01 Annual wellness exam completed. Cholesterol screening 27 1666428 Z13.220 Fasting lipid panel is due Diabetes m ellitus screening 033394705 Z13.1 Annual A1c screening is due Thyroid di sorder screening 741251763 Z13.29 Routine thyroid function testing is due Asthma 666424563 J45.90 9 Stable on Symbicort therapy 160/4.5 mcg twice daily and albuterol PRN Ankylosing spondylitis 2873750 M45.9 On amjevita since end of May, every two weeks, seeing Dr. Mattson at [facility]. Attention deficit hyperactivity disorder 368076538 F90.9 Underlying history noted with Adderall ER 20 mg daily on board with specialist . Generalize d anxiety disorder 30349103 F41.1 Lexapro 15mg daily. Long-term drug therapy 134154779 Z79.899 Annual labs ordered, fasting status. Finding of neck region 483124156 M54.2 70694978 Patient has a little bit of anterior neck discomfort sensation where she feels some tightening . There is no palpable mass at all on exam today but we will send her for a baseline ultrasound of her thyroid Health Concerns Section Related Observation LastModified by Organization Detai ls LastModified Time None Recorded Concern Status LastModified by Organization Details LastModified Time None Recorded Advance Directives Directive None Recorded Payers Insurance Date Sequence Insurance Name Policy Number Policy Rodriguez Covered Member ID Rodriguez Member ID Guarantor Name 02/01/2025 1 [employer] [id number] Juventino Kimball [id number] Malika Kimball Notes Date Note Type Note Provider Name and Address Organization Details Recorded Time 01/02/2024 text/html Anxiety/Depressi onRe ported by [facility]. [facility] is the primary diagnosis. She does take BuSpar daily and Lexapro daily. She also has underlying ADHD and takes Adderall ER 20 mg daily. This has been managed by specialist. Asthma F/UReported by PatientPatient takes Symbicort and albuterol inhaler and has been stable but does have weather related flare up. She does need refills Ankylosing spondylitis-this is a new diagnosis that the patient has had found since seeing provider last at the old office. She does have a specialist that she follows for in Rheumatology and is taking Humira injection. She is having some improvement in her pain. MADHAVI Petty Attn: [address] [place], [address], [facility] - [place] 01/12/2024 11:42:04 01/15/2025 text/html Anxiety/Depressi onRe ported by [facility] is the primary diagnosis. She does take BuSpar daily and Lexapro 15 mg daily. She also has underlying ADHD and takes Adderall ER 20 mg daily. This has been managed by specialist. Asthma F/UReported by PatientPatient takes Symbicort and albuterol inhaler and has been stable but does have weather related flare up. She does need refills Ankylosing spondylitis-this is a new diagnosis that the patient has had found since seeing provider last at the old office. She does have a specialist that she follows for in Rheumatology and is taking Humira injection. She is having some improvement in her pain. MADHAVI Petty Attn: [address] [place], [address], [place] 01/29/2025 13:05:13 OBGyn Episode No OBEpisode recorded.
--- NOTE | 2025-03-29 07:26 | PM.IMHP ---
H&P: HPI History of Present Illness Date/Time: 03/29/25 07:26 Chief Complaint: desires sterilization Narrative: Patient is a 29 year old female who presents for laparoscopic bilateral salpingectomy. She has completed childbearing and does not desire future pregnancies. Reversible contraception options have been discussed and she declines reversible methods. She understands this procedure is permanent and cannot be reversed. She denies abdominal pain, dysuria, fevers, chills, nausea or vomiting. Review of Systems Review of Systems: All systems reviewed & are unremarkable except as noted in HPI and below PMFSH Family History Family History Other Family history of malignant neoplasm of breast in first degree relative Family history of malignant neoplasm of uterus Social History Social History Smoking status: Former smoker Tobacco type: e-cigarettes/vaping Second hand tobacco smoke exposure: No Substance use: current Substance use type: marijuana Other substance usage details: daily marijuana Living arrangements: with family Spiritual care concerns: No Meds Home Medications and Allergies Home Medications ?Medication ?Instructions ?Recorded ?Confirmed ?Type adalimumab-atto 40 mg/0.4 mL 40 mg subcut .qw 03/17/25 03/17/25 History subcutaneous syringe (Amjevita(CF)) albuterol sulfate 90 mcg/actuation 1 inh inhalation Q4-6H PRN 03/17/25 03/17/25 History aerosol inhaler shortness of breath or wheezing budesonide-formoterol HFA 160 1 inh inhalation Q12H 03/17/25 03/17/25 History mcg-4.5 mcg/actuation aerosol inhaler buspirone 5 mg tablet 5 mg PO BID 03/17/25 03/17/25 History dextroamphetamine-amphetamine ER 25 mg PO .am 03/17/25 03/17/25 History 25 mg 24hr capsule,extend release escitalopram oxalate 10 mg tablet 10 mg PO QAM 03/17/25 03/17/25 History Allergies Allergy/AdvReac Type Severity Reaction Status Date / Time No Known Allergies Allergy Verified 03/17/25 17:40 Exam Const: General: comfortable and no acute distress HENMT: Mouth: Yes moist mucous membranes Eyes: General: appearance normal, both eyes and all related structures Resp: Effort & Inspection: normal respiratory effort Cardio: Rate: regular rate Extrem: General: normal to inspection Psych: Mental Status: mental status grossly normal Assessment and Plan Assessment and plan (1) Encounter for sterilization: Code(s): Z30.2 - Encounter for sterilization Status: Acute Assessment and Plan: - patient desires permanent sterilization - discussed risks, benefits, and alternatives of bilateral salpingectomy, including risks of bleeding, infection and injury to surrounding organs. Also discussed alternative contraceptive options including partner vasectomy and patient declines. - will proceed with laparoscopic bilateral salpingectomy
--- NOTE | 2025-03-29 09:13 | WPDANESEPPF ---
Anes - Initial Pre Proc Eval Procedure: Operation Date: 03/29/25 10:30 Proposed Procedures p Laparoscopic Bilateral Salpingectomy - Shahzad Pacheco MD Date/Time: 03/29/25 09:13 Surgeon: Shahzad Pacheco MD Pre Op Diagnosis: sterilization requested Patient Data Age: 29 Gender: F Height: 1.68 m Weight: 68 kg Allergies Allergy/AdvReac Type Severity Reaction Status Date / Time No Known Allergies Allergy Verified 03/29/25 08:47 Home Medications ?Medication ?Instructions ?Recorded ?Confirmed ?Type adalimumab-atto 40 mg/0.4 mL 40 mg subcut .qw 03/17/25 03/29/25 History subcutaneous syringe (Amjevita(CF)) albuterol sulfate 90 mcg/actuation 1 inh inhalation Q4-6H PRN 03/17/25 03/29/25 History aerosol inhaler shortness of breath or wheezing budesonide-formoterol HFA 160 1 inh inhalation Q12H 03/17/25 03/29/25 History mcg-4.5 mcg/actuation aerosol inhaler buspirone 5 mg tablet 5 mg PO BID 03/17/25 03/29/25 History dextroamphetamine-amphetamine ER 25 mg PO .am 03/17/25 03/29/25 History 25 mg 24hr capsule,extend release escitalopram oxalate 10 mg tablet 10 mg PO QAM 03/17/25 03/29/25 History fluvoxamine 100 mg 100 mg PO DAILY 03/29/25 03/29/25 History capsule,extended release 24 hr Patient hx anesthesia problems: none Family hx anesthesia problems: none Results Review: All pre-operative results and documents have been reviewed as part of the pre-operative evaluation. [facility] Past Medical History Medical History (Updated 03/29/25 @ 09:16 by Clarence Adler DO) Asthma Depression ADHD Anxiety Family History Family History Other Family history of malignant neoplasm of breast in first degree relative Family history of malignant neoplasm of uterus Social History Social History Smoking status: Former smoker Tobacco type: e-cigarettes/vaping Second hand tobacco smoke exposure: No Substance use: current Substance use type: marijuana Other substance usage details: daily marijuana Living arrangements: with family Spiritual care concerns: No Anes - Eval Final PreProcedure Day of Procedure 03/29/25 09:13 Patient weight: obese Heart: regular rate and rhythm Lungs: clear to auscultation Airway: Mallampati scale class II Neurological: alert and oriented Last oral intake: >/= 8 hours ASA classification: III Emergent: no Anesthetic plan: proceed Anesthesia type and monitoring: general ETT and standard monitoring Results Review: All pre-operative results and documents have been reviewed as part of the pre-operative evaluation. Informed Consent: The patient's anesthetic plan and its attendant risks and benefits were discussed with the patient/family/POA. Questions were solicited and answers provided to the satisfaction of the patient/family/POA.
[2025-03-29] MEDS: ACETAMINOPHEN 500 MG TABLET 1000 MG PO (09:14)
[2025-03-29] MEDS: LACTATED RINGERS 1,000 ML 30 ML IV CONT ×2 (09:20→11:22)
[2025-03-29] MEDS: KETOROLAC 15 MG/ML VIAL (*BKC) IV PUSH (09:24)
[2025-03-29 09:40] LABS: BEDSIDEPREGUCG Negative (Negative)
--- NOTE | 2025-03-29 09:42 | WPDHPUPDATE1 ---
History and Physical Update Update Date/Time: 03/29/25 09:42 History and Physical has been reviewed, including an updated exam of the patient. There are NO changes in the patient's condition. Risks, benefits, and alternatives have been discussed and questions answered. Patient agrees to proceed with procedure.
[2025-03-29] MEDS: LIDO 1%/EPINEPHRINE 1:100,000 20 ML VIAL 10 ML INFILTRATE (10:19)
--- NOTE | 2025-03-29 10:24 | S_PTH ---
PATIENT: Malika Olson LOC: [facility] U#:[id number] AGE/SX: 29/F ROOM: RE03/29/[address]: Shahzad Pacheco MD : [id number] BED: DIS: 03/29/2025 SPEC #: [id number] RECD: 03/29/25 11:48 STATUS: NIK RESg #: [id number] ROHINI: 03/29/25 10:[address]: Shahzad Pacheco DEPT: [facility] Surgical RECD BY: Blanche Phillips ENTERED: 03/29/25 11:48 SP TYPE: Surgical OTHR DR: Janel Neff, PA-C Tissues: A - Fallopian Tube Bilateral B - Endometrial Bx Procedures: Gross and Microscopic Level 2 Hematoxylin and Eosin Stain Gross and Microscopic Level 4
--- NOTE | 2025-03-29 10:51 | W.PM.PROC2 ---
Procedure Note - Detailed Date of Procedure 03/29/25 Pre-op Diagnosis sterilization requested Post-op Diagnosis Same Procedure Performed laparoscopic bilateral salpingectomy Surgeon Shahzad Pacheco MD Anesthesia General Indications desires permanent sterilization Findings normal appearing uterus, bilateral tubes and bilateral ovaries; small hyperpigmented lesion on anterior uterine serosa, c/w endometriosis Description of Procedure With IV fluids infusing, the patient was taken to the operating room. The patient was placed in supine position. General anesthesia with endotracheal intubation was given. A time-out took place. The patient was placed in dorsal lithotomy position using Emery stirrups and she was prepped and draped in the usual sterile fashion. The bladder was drained using a red rubber catheter. A sterile speculum was placed vaginally, the anterior lip of the cervix was grasped with a single-tooth tenaculum and the acorn uterine manipulator was placed without difficulty. The speculum was removed. The surgeon's gloves were changed and attention was turned to the abdomen. A 5 mm incision was made in the umbilicus. Under direct visualization with the scope, the umbilical port was inserted without difficulty. Another two trocars were placed under direct visualization in the left upper and left lower quadrants. The patient was placed in Trendelenburg and inspection of the pelvis noted the above findings. Appropriate pictures were taken. Using the LigaSure device, a left salpingectomy was performed in the usual fashion. Care was taken to avoid the IP ligament. The salpingectomy went smoothly. The same procedure was repeated on the right side. The suspected endometriosis implant was removed using a [place] grasper and the Ligasure device. Hemostasis was assured after removal. All specimens were sent to pathology. The instruments were all removed from the abdomen and the CO2 gas was allowed to escape. The three skin incisions were reapproximated with 4-0 Polysorb in a subcuticular manner, followed by skin glue. The acorn manipulator and single tooth tenaculum was removed from the uterus and cervix, respectively. The tenaculum sites were hemostatic. All instruments were removed from the vagina. At the end of the case, instrument, sponge and needle counts were correct x 2. The patient was awakened from general anesthesia and was taken to PACU in stable condition. Estimated Blood Loss 5 Pathology Yes Complications No immediate complications Condition Stable Disposition Same day
[2025-03-29] MEDS: fentaNYL CITRATE INJ (*CRX) 100 MCG/2 ML VIAL 25 MCG IV PUSH ×4 (11:05→11:20)
[2025-03-29] MEDS: oxyCODONE HCL (*CRX) 5 MG TAB IR PO (11:52)
== END 2025-03-29 12:40 | disposition home or self-care (01) ==
PROVIDERS: PCP Physician Assistant; Visit Provider Obstetrics & Gynecology
PROC: (CPT 49320; principal; 2025-03-29 10:30)
DX: Z30.2 Encounter for sterilization (principal); N70.11 Chronic salpingitis; J45.909 Unspecified asthma, uncomplicated; F32.A Depression, unspecified; F90.9 Attention-deficit hyperactivity disorder, unspecified type; F41.9 Anxiety disorder, unspecified; F12.90 Cannabis use, unspecified, uncomplicated; E66.9 Obesity, unspecified; Z68.25 Body mass index [BMI] 25.0-25.9, adult; Z79.620 Long term (current) use of immunosuppressive biologic; Z79.51 Long term (current) use of inhaled steroids; Z87.891 Personal history of nicotine dependence; Z80.3 Family history of malignant neoplasm of breast; Z80.49 Family history of malignant neoplasm of other genital organs
CPT/HCPCS: 58661; 88302; 88305; A9270; J1100; J1885; J2003; J2004; J2250; J2405; J2704; J3010; J7120